=== PATIENT | male | born 1995 | race Caucasian/White ===

== ENCOUNTER 2019-03-08 00:57 | Outpatient (CLI) | payer OTHER, SELFPAY ==
--- NOTE | 2019-03-08 14:09 | DI.RAD_ITS ---
EXAM: XR CHEST 2V PA LATERAL CLINICAL HISTORY: LYMPHADENOPATHY, R59.1-GENERALIZED ENLARGED LYMPH NODES. TECHNIQUE: 2D digital imaging was performed. COMPARISON: ABD FLAT UPRIGHT PA CHEST from 11/25/2011 FINDINGS: LUNGS: Clear. No pleural abnormality seen. HEART: Normal. MEDIASTINUM: Normal. OTHER FINDINGS:Normal. IMPRESSION: No acute pulmonary findings.
[2019-03-08 14:53] LABS: HCT 48.1 % (40.0-50.0); HGB 16.7 g/dL (13.5-17.5); Mean Corp. HGB Concentration 34.7 g/dL (32.0-36.0); Mean Corpuscular Hemoglobin 30.9 pg (27.0-33.0); Mean Corpuscular Volume 89.1 fL (80-95); Mean Platelet Volume 9.9 fL (8.0-11.0); Platelet Count 185 x1000/uL (130-400); White Blood Cell Count 6.74 k/cumm (4.4-10.8)
[2019-03-08 15:36] LABS: ESR 4 mm/hr (0-15)
[2019-03-08 16:06] LABS: TSH (W/Ref FT4) 0.99 uIU/mL (0.36-3.74); Vitamin B12 325 pg/mL (193-986)
[2019-03-09 11:35] LABS: Lyme Ab w Rflx to Lyme Confirm Negative (Negative)
[2019-03-09 14:44] LABS: ANA Interpretation Negative (Negative)
[2019-03-09 14:47] LABS: HIV-1/2 Ag & Ab Screen Negative (Negative)
== END 2019-03-08 01:17 ==
PROVIDERS: PCP Nurse Practitioner; Visit Provider Nurse Practitioner
DX: R59.1 Generalized enlarged lymph nodes (principal); R53.83 Other fatigue; I10 Essential (primary) hypertension; Z11.4 Encounter for screening for human immunodeficiency virus [HIV]
CPT/HCPCS: 36415; 85027; 85652; 87389; 71046; 82607; 84443; 86038; 86618

== ENCOUNTER 2019-05-06 14:23 | Outpatient (CLI) | payer OTHER, SELFPAY ==
--- NOTE | 2019-05-06 12:00 | DI.RAD_ITS ---
EXAM: XR MANDIBLE COMPLETE INDICATION: pain s/p fall landing on left mandible R52, W19.XXXA, R68.84. COMPARISON: No exams were available for comparison TECHNIQUE: 2D digital imaging was performed. FINDINGS: There is no evidence of fracture. There is normal mobility of the temporomandibular joints. There is no evidence temporomandibular joint dislocation. There is a mucous retention cyst at the floor of the right maxillary sinus. There is no bony destruction. The remaining sinuses appear clear. The cervical spine is unremarkable as visualized. IMPRESSION: Negative mandible and temporomandibular joints. DATA REPOSITORY: RADIATION DOSE DELIVERED:
== END 2019-05-06 14:43 ==
PROVIDERS: PCP Nurse Practitioner; Visit Provider Nurse Practitioner
DX: R68.84 Jaw pain (principal); W19.XXXA Unspecified fall, initial encounter; J34.1 Cyst and mucocele of nose and nasal sinus
CPT/HCPCS: 70110; 70328

== ENCOUNTER 2019-09-03 16:31 | Outpatient (REF) | payer OTHER, SELFPAY ==
[2019-09-06 10:00] LABS: HIV-1/2 Ag & Ab Screen Negative (Negative)
[2019-09-06 11:29] LABS: Syphilis Serology (RPR) Negative (Negative)
[2019-09-06 16:43] LABS: Chlamydia Result Positive (Negative); GC Result Negative (Negative)
== END 2019-09-03 16:51 ==
LOC: LBO 16:31
PROVIDERS: PCP Nurse Practitioner; Visit Provider Family Medicine
DX: Z11.3 Encounter for screening for infections with a predominantly sexual mode of transmission (principal); Z11.4 Encounter for screening for human immunodeficiency virus [HIV]
CPT/HCPCS: 87389; 87491; 87591; 86592

== ENCOUNTER 2019-11-02 07:57 | Outpatient (CLI) | payer OTHER, SELFPAY ==
[2019-11-04 22:13] LABS: SARS-CoV-2 Specimen Source Nasopharynx
[2019-11-04 23:25] LABS: SARS-CoV-2 RNA Detected (Undetected)
== END 2019-11-02 08:17 ==
PROVIDERS: PCP Nurse Practitioner; Visit Provider Nurse Practitioner Adult Health
DX: R05 Cough (principal); R09.81 Nasal congestion; R53.83 Other fatigue
CPT/HCPCS: U0003

== ENCOUNTER 2019-11-12 03:49 | Outpatient (CLI) | payer OTHER, SELFPAY ==
[2019-11-14 23:05] LABS: Patient Race White; SARS-CoV-2 Specimen Source Nasopharynx
[2019-11-15 07:02] LABS: SARS-CoV-2 RNA Indeterminate (Undetected)
== END 2019-11-12 04:09 ==
PROVIDERS: PCP Nurse Practitioner; Visit Provider Family Medicine
DX: Z11.59 Encounter for screening for other viral diseases (principal)
CPT/HCPCS: U0003

== ENCOUNTER 2019-11-19 07:56 | Outpatient (CLI) | payer OTHER, SELFPAY ==
[2019-11-22 16:14] LABS: COVID-19 RT-PCR UVMMC Result Positive (Negative)
== END 2019-11-19 08:16 ==
PROVIDERS: PCP Nurse Practitioner; Visit Provider Family Medicine
DX: U07.1 COVID-19 (principal)
CPT/HCPCS: U0003

== ENCOUNTER 2019-12-21 14:00 | Outpatient (REF) | payer OTHER, SELFPAY ==
[2019-12-23 15:20] LABS: Chlamydia Result Negative (Negative); GC Result Negative (Negative)
== END 2019-12-21 14:20 ==
LOC: LBN 14:00
PROVIDERS: PCP Nurse Practitioner; Visit Provider Family Medicine
DX: Z20.2 Contact with and (suspected) exposure to infections with a predominantly sexual mode of transmission (principal); Z11.3 Encounter for screening for infections with a predominantly sexual mode of transmission
CPT/HCPCS: 87491; 87591

== ENCOUNTER 2020-01-17 12:30 | Outpatient (REF) | payer OTHER, SELFPAY | END 2020-01-17 12:50 | LOC: LBN 12:30 | PROVIDERS: PCP Nurse Practitioner; Visit Provider Nurse Practitioner | DX: H92.03 Otalgia, bilateral (principal) | CPT/HCPCS: 87070 ==

== ENCOUNTER 2020-02-04 11:49 | Inpatient (IN) | payer OTHER, SELFPAY ==
[2020-02-04] VITALS (26 sets, daily range): BP systolic 110–153; BP diastolic 68–94; PULSE 41–72; RESP 7–20; TEMP 36.1–36.6; O2SAT 94–100
--- NOTE | 2020-02-04 11:58 | ED.GENADUL_ITS ---
Discharge Plan Discharge Details Chief Complaint: Nk/Back Pain Primary Care Provider: Nicci Lo ED Provider: Andressa Aden Home Meds and New Rx's Prescriptions: No Action hydroxyzine HCl 50 mg tablet 50 mg PO QID PRN (Reason: anxiety) Qty: 120 RF: 2 tizanidine [Zanaflex] 4 mg tablet 16 mg PO HS MDD 4 tabs PRN (Reason: muscle spasticity) Qty: 360 RF: 1 sildenafil 100 mg tablet See Rx Instructions PO DAILY PRN (Reason: sexual activity) Qty: 30 RF: 1 fluticasone propionate [Flonase Allergy Relief] 50 mcg/actuation spray,suspension 2 spray LEW DAILY PRN (Reason: nasal congestion) Qty: 9.9 RF: 0 lorazepam 0.5 mg tablet 0.5 mg PO BID PRN (Reason: anxiety) Qty: 56 RF: 0 zolpidem 10 mg tablet 10 mg PO QHS PRN (Reason: sleep) Qty: 90 RF: 0 clonidine HCl 0.2 mg tablet 0.2 mg PO TID PRN (Reason: anxiety) Qty: 90 RF: 3 bupropion HCl [Wellbutrin XL] 150 mg tablet extended release 24 hr 150 mg PO QAM Qty: 30 RF: 3 Medical Marijuana RF: 0 fluocinonide 0.05 % cream 1 applic TP BID PRN (Reason: psoriasis) Qty: 60 RF: 3 diflorasone 0.05 % cream 1 applic TP BID Qty: 60 RF: 3 betamethasone dipropionate 0.05 % lotion 1 applic TP BID RF: 0 calcipotriene 0.005 % ointment 1 applic TP BID RF: 0 buspirone 15 mg tablet 30 mg PO BID Qty: 120 RF: 6 ibuprofen 800 mg tablet 800 mg PO TID PRN (Reason: pain) Qty: 90 RF: 3 betamethasone dipropionate 0.05 % ointment 1 applic TP BID RF: 0 risankizumab-rzaa 75 mg/0.83 mL syringe See Rx Instructions SC PER PKG DIR RF: 0 tacrolimus 0.1 % ointment 1 applic TP BID PRNRF: 0 acetaminophen 325 mg Tablet 650 mg PO PRN PRNRF: 0 Medical Decision Making 24-year-old male presents to the ER with chief complaint of back pain and v omiting. He reports pain began approximately 2 days ago followed by vomiting today. He is diaphoretic upon arrival and actively dry heaving. He reports midepigastric abdominal pain and midthoracic back pain. He has a history of anxiety, low back pain, chronic pain syndrome, sent here by PCP for further work-up and evaluation. 1326: Spoke with Dr. Valdez with with radiology he gives a verbal preliminary CT results of acute pancreatitis. No kidney stone. Lipase added on the labs urine at this time is still pending. EXAM: CT RENAL COLIC WO CLINICAL HISTORY: Back pain, vomiting, R/O kidney stone. TECHNIQUE: Imaging Protocol: Axial computed tomography images with coronal and sagittal reformatted images were created and reviewed. COMPARISON: No prior exams available for comparison FINDINGS: ABDOMEN: Visualize lung Bases: No pleural effusions. No obvious nodules Liver: Partially included on this renal calculus protocol. There is an element of steatosis in the visualized liver. There are no obvious masses. No obvious dilatation of intrahepatic ducts. Gallbladder and biliary tract: No obvious acute gallbladder pathology. CBD is not dilated. Pancreas: There is abundant peripancreatic streaking consistent with pancreatitis. No obvious pancreatic mass. No pancreatic parenchymal calcifications. Spleen: Upper normal Kidneys: Normal size, contour and axis.No radiodense stones or obstructive uropathy. No masses seen. Adrenal glands: No mass is seen. Lymph nodes: Within normal limits. Abdominal Aorta: Abdominal portion non-dilated. PELVIS: Bladder:Unremarkable Bowel: No obstruction or bowel wall thickening. No evidence for acute appendicitis. Peritoneal cavity: There is some free fluid in the most dependent aspect of the pelvis, this related to the pancreatitis. Reproductive organs: Within normal limits. Bones: Fusion surgery in the lower lumbar spine. No fractures nor lytic osseous lesions. Sacroiliac joints appear unremarkable. IMPRESSION: Findings are consistent with acute pancreatitis. There is abundant peripancreatic streaking. There is no formed pseudocyst at this time. No evidence of renal calculi nor obstruction of the urinary tracts. Result called by myself to the ER provider at [facility]. EXAM: US ABDOMEN LIMITED INDICATION: Pancreatitis, Eval Gallblader and RUQ COMPARISON: No exams were available for comparison TECHNIQUE: Ultrasound abdomen performed using standard protocol FINDINGS: Abdominal ultrasound was performed according to the usual protocol. The liver is normal in size and shape. No focal hepatic lesion seen. There is no evidence of cholelithiasis or biliary dilatation. No gallbladder wall thickening or pericholecystic fluid collection. The pancreatic head is thickened and edematous, abdominal CT obtained earlier today showed findings highly suggestive of acute pancreatitis with marked peripancreatic edema. There is mild free fluid noted in Carroll's pouch and adjacent to the pancreatic head. Spleen is unremarkable in appearance with no focal lesion. Kidneys are normal in size and shape. No renal mass, hydronephrosis, or nephrolithiasis. Abdominal aorta and IVC are of normal diameter. IMPRESSION: No evidence of cholelithiasis or biliary tract obstruction. Findings consistent with pancreatitis, as noted on today's CT. 1456: Spoke with Dr. Dewitt hospitalist who agrees to accept patient for admission. Discussed patient case in details with him. Discussed plan with patient who verbalizes understanding and agrees. HPI General Mode of arrival: ambulatory . Date/Time Provider Initiated Documentation: 02/04/20 11:53 . Limitations to Documentation: no limitations . Information obtained by: patient . HPI Narrative: 24-year-old male presents to the ER with chief complaint of back pain and vomiting. He reports pain began approximately 2 days ago followed by vomiting today. He is diaphoretic upon arrival and actively dry heaving. He reports midepigastric abdominal pain and midthoracic back pain. He has a history of anxiety, low back pain, chronic pain syndrome, sent here by PCP for further work-up and evaluation. Related Data Home Medications Medication Instructions Recorded Confirmed fluocinonide 0.05 % topical cream 1 applic TP BID PRN #60 gm 12/18/17 02/04/20 diflorasone 0.05 % topical cream 1 applic TP BID #60 gm 01/05/18 02/04/20 betamethasone dipropionate 0.05 % 1 applic TP BID 10/26/18 02/04/20 lotion calcipotriene 0.005 % topical 1 applic TP BID 10/26/18 02/04/20 ointment hydroxyzine HCl 50 mg tablet 50 mg PO QID PRN #120 tab 05/06/19 02/04/20 clonidine HCl 0.2 mg tablet 0.2 mg PO TID PRN #90 tab 05/18/19 02/04/20 buspirone 15 mg tablet 30 mg PO BID #120 tab 05/19/19 02/04/20 ibuprofen 800 mg tablet 800 mg PO TID PRN #90 tab 06/29/19 02/04/20 bupropion HCl 150 mg 24 hr tablet, 150 mg PO QAM #30 tab 08/12/19 02/04/20 extended release betamethasone dipropionate 0.05 % 1 applic TP BID 10/27/19 02/04/20 topical ointment risankizumab-rzaa 75 mg/0.83 mL See Rx Instructions SC PER PKG DIR 10/27/19 02/04/20 subcutaneous syringe tacrolimus 0.1 % topical ointment 1 applic TP BID PRN 10/27/19 02/04/20 fluticasone propionate 50 2 spray LEW DAILY PRN #9.9 ml 11/01/19 02/04/20 mcg/actuation nasal spray,suspension sildenafil 100 mg tablet See Rx Instructions PO DAILY PRN 11/01/19 02/04/20 #30 tab tizanidine 4 mg tablet 16 mg PO HS PRN #360 tab MDD 4 tabs 11/01/19 02/04/20 lorazepam 0.5 mg tablet 0.5 mg PO BID PRN #56 tab 01/17/20 02/04/20 zolpidem 10 mg tablet 10 mg PO QHS PRN #90 tab 01/17/20 02/04/20 acetaminophen 650 mg PO PRN PRN 02/04/20 02/04/20 Previous Rx's Medication Instructions Recorded fluocinonide 0.05 % topical cream 1 applic TP BID PRN #60 gm 12/18/17 diflorasone 0.05 % topical cream 1 applic TP BID #60 gm 01/05/18 hydroxyzine HCl 50 mg tablet 50 mg PO QID PRN #120 tab 05/06/19 clonidine HCl 0.2 mg tablet 0.2 mg PO TID PRN #90 tab 05/18/19 buspirone 15 mg tablet 30 mg PO BID #120 tab 05/19/19 ibuprofen 800 mg tablet 800 mg PO TID PRN #90 tab 06/29/19 bupropion HCl 150 mg 24 hr tablet, 150 mg PO QAM #30 tab 08/12/19 extended release fluticasone propionate 50 2 spray LEW DAILY PRN #9.9 ml 11/01/19 mcg/actuation nasal spray,suspension sildenafil 100 mg tablet See Rx Instructions PO DAILY PRN 11/01/19 #30 tab tizanidine 4 mg tablet 16 mg PO HS PRN #360 tab MDD 4 tabs 11/01/19 lorazepam 0.5 mg tablet 0.5 mg PO BID PRN #56 tab 01/17/20 zolpidem 10 mg tablet 10 mg PO QHS PRN #90 tab 01/17/20 Allergies Allergy/AdvReac Type Severity Reaction Status Date / Time No Known Allergies Allergy Verified 02/04/20 12:01 General Stated Complaint: Nk/Back Pain ANAMIKA: 3 Review of Systems Narrative: Constitutional: Negative for weight loss, alert and oriented, well groomed, normal body habitus, appears uncomfortable. Positive diaphoresis. HEENT: Denies trauma, headaches, blurry vision, nasal discharge, sore throat, trouble swallowing. Chest: Denies chest pain, palpitations, irregular rhythm, hypertension. Respiratory: Denies Shortness of breath, cough, hemoptysis. GI: Denies diarrhea, positive abdominal pain, nausea vomiting and constipation. : Denies dysuria, hematuria, flank pain, rectal bleeding. Neuro: Denies dizziness, blurry vision, weakness, syncope, headache or facial numbness. Hematologic: Denies easy bruising, intolerance to heat or cold, hair loss. [facility] Medical History Depressive disorder (12/09/12) Surgical History Spinal Fusion (02/25/13) L4,5 Social History Smoking/Tobacco Use Status: Never Smoking risk assessment performed?: Yes Alcohol Intake: current Alcohol Intake frequency: a few times a week Drug use: Daily Substance use type: marijuana What type of physical activity do you participate in: walking, aerobic, swimming and weight lifting Frequency: 3-4 times per week Do you feel safe at home: Yes Do you feel safe in your relationship?: Yes Exam Narrative Exam Narrative: Constitutional: Alert and oriented x3. Appears stated age. Normal body habitus. Diaphoretic, pale. Head: Normocephalic, no trauma. Eyes: Pupils PERRLA, Red reflex noted, EOM's intact. Eyelids symmetrical without lesions, discharge, or swelling. ENT: Bilateral TM's WNL, External ear normal to inspection, no mastoid TTP, swelling, or erythema, Nasal turbinates WNL, no nasal discharge. Normal dentition, Posterior pharynx WNL, no exudate. Chest: RRR, Normal S1, S2, distal pulses intact. Resp: Lungs clear to auscultation bilaterally, no wheezes, rales, or rhonchi. Abdomen: TTP mid epigastric, positive guarding. Musculoskeletal: Normal gait, 5/5 strength to all four extremities. Skin: No suspicious rashes or lesions. Capillary refill less than 2 sec. Neurologic: Cranial nerves II-XII intact. Alert and oriented x 3. DTR's intact. Hematologic/Lymphatic: No ecchymosis, no lymphadenopathy. Course Vital Signs Vital signs: Vital Signs Temperature 36.3 C L 02/04/20 11:53 Pulse 65 02/04/20 11:53 Respiratory Rate 20 02/04/20 11:53 Blood Pressure 145/94 H 02/04/20 11:53 Pulse Oximetry 94 02/04/20 11:53 Temperature 36.3 C L 02/04/20 11:53 Pulse 65 02/04/20 11:53 Respiratory Rate 20 02/04/20 11:53 Blood Pressure 145/94 H 02/04/20 11:53 Blood Pressure Position Sitting 02/04/20 11:53 Pulse Oximetry 94 02/04/20 11:53 Oxygen Delivery Method Room Air 02/04/20 11:53 Oxygen Flow Rate 0 02/04/20 11:53 Pain Level 8 02/04/20 11:53
[2020-02-04] MEDS: Ondansetron 4 MG/2 ML VIAL IVP (12:15)
[2020-02-04] MEDS: Normal Saline 1,000 ML 1000 ML IV (12:15)
[2020-02-04 12:19] LABS: Abs Immature Grans 0.04 10^3/uL (0.0-0.06); Absolute Basophil Count 0.02 10^3/uL (0.0-0.2); Absolute Eosinophil Count 0.38 10^3/uL (0.0-0.7); Absolute Lymphocyte Count 1.46 10^3/uL (1.2-3.4); Absolute Monocyte Count 0.87 10^3/uL (0.1-0.8); Basophils % 0.2; Eosinophils % 3.4; HCT 49.2 % (40.0-50.0); HGB 17.3 g/dL (13.5-17.5); Immature Grans % 0.4; MCH 30.9 pg (27.0-33.0); MCHC 35.2 % (32.0-36.0); MCV 87.9 fL (80-95); MPV 9.6 fL (8.0-11.0); Monocytes % 7.7; Neutrophils % 75.3; Nucleated RBC 0 %; Platelet Count 177 10^3/uL (130-400); RDW 13.1 % (11.8-14.1); RDW-SD 42.1 fL; WBC 11.25 10^3/uL (4.4-10.8)
[2020-02-04 12:34] LABS: ALT 22 U/L (16-63); AST 17 U/L (15-37); Albumin 4.8 g/dL (3.4-5.0); Alkaline Phosphatase 54 U/L (46-116); BUN 14 mg/dL (7-18); Bilirubin, Total 1.4 mg/dL (0.2-1.0); CREATININE 0.98 mg/dL (0.70-1.30); Calcium 9.7 mg/dL (8.5-10.1); Chloride 104 mmol/L (98-107); Glucose 125 mg/dL (74-106); Potassium 3.2 mmol/L (3.5-5.1); Sodium 142 mmol/L (136-145); Total Protein 8.2 g/dL (6.4-8.2)
[2020-02-04 12:39] LABS: Absolute Neutrophil Count 8.47 10^3/uL (1.2-6.7)
--- NOTE | 2020-02-04 13:07 | DI.CT_ITS ---
EXAM: CT RENAL COLIC WO CLINICAL HISTORY: Back pain, vomiting, R/O kidney stone. TECHNIQUE: Imaging Protocol: Axial computed tomography images with coronal and sagittal reformatted images were created and reviewed. COMPARISON: No prior exams available for comparison FINDINGS: ABDOMEN: Visualize lung Bases: No pleural effusions. No obvious nodules Liver: Partially included on this renal calculus protocol. There is an element of steatosis in the v isualized liver. There are no obvious masses. No obvious dilatation of intrahepatic ducts. Gallbladder and biliary tract: No obvious acute gallbladder pathology. CBD is not dilated. Pancreas: There is abundant peripancreatic streaking consistent with pancreatitis. No obvious pancre atic mass. No pancreatic parenchymal calcifications. Spleen: Upper normal Kidneys: Normal size, contour and axis.No radiodense stones or obstructive uropathy. No masses seen. Adrenal glands: No mass is seen. Lymph nodes: Within normal limits. Abdominal Aorta: Abdominal portion non-dilated. PELVIS: Bladder:Unremarkable Bowel: No obstruction or bowel wall thickening. No evidence for acute appendicitis. Peritoneal cavity: There is some free fluid in the most dependent aspect of the pelvis, this related to the pancreatitis. Reproductive organs: Within normal limits. Bones: Fusion surgery in the lower lumbar spine. No fractures nor lytic osseous lesions. Sacroiliac joints appear unremarkable. IMPRESSION: Findings are consistent with acute pancreatitis. There is abundant peripancreatic streaking. There is no formed pseudocyst at this time. No evidence of renal calculi nor obstruction of the urinary tracts. Result called by myself to the ER provider at [facility]. RADIATION DOSE DELIVERED: 797.93mGy.cm Total DLP DATA REPOSITORY: All CT scans at this facility are submitted to the National Radiology Data Registry (NRDR) Dose Index Registry (DIR) with the [employer] ([employer]). RADIATION OPTIMIZATION: All CT scans at this facility use at least one of these dose optimization te chniques: automated exposure control; mA and/or kV adjustment per patient size (includes targeted exa ms where dose is matched to clinical indication); or iterative reconstruction.
--- NOTE | 2020-02-04 13:30 | DI.US_ITS ---
EXAM: US ABDOMEN LIMITED INDICATION: Pancreatitis, Eval Gallblader and RUQ COMPARISON: No exams were available for comparison TECHNIQUE: Ultrasound abdomen performed using standard protocol FINDINGS: Abdominal ultrasound was performed according to the usual protocol. The liver is normal in size and shape. No focal hepatic lesion seen. There is no evidence of cholelithiasis or biliary dilatation. No gallbladder wall thickening or peric holecystic fluid collection. The pancreatic head is thickened and edematous, abdominal CT obtained earlier today showed findings h ighly suggestive of acute pancreatitis with marked peripancreatic edema. There is mild free fluid no sherley in Carroll's pouch and adjacent to the pancreatic head. Spleen is unremarkable in appearance with no focal lesion. Kidneys are normal in size and shape. No renal mass, hydronephrosis, or nephrolithiasis. Abdominal aorta and IVC are of normal diameter. IMPRESSION: No evidence of cholelithiasis or biliary tract obstruction. Findings consistent with pancreatitis, a s noted on today's CT.
[2020-02-04] MEDS: HYDROmorphone 2 MG/ML VIAL 0.5 MG IVP ×2 (13:44→15:12)
[2020-02-04] MEDS: Normal Saline 250 ML IV (13:48)
[2020-02-04 14:10] LABS: Lipase 7422 U/L (73-393)
[2020-02-04 15:03] LABS: Triglyceride 51 mg/dL (<150)
[2020-02-04 15:29] LABS: Bilirubin Small (Negative); Blood Negative (Negative); Clarity Clear (Clear); Glucose Negative (Negative); Ketones 40 mg/dL (Negative); Leukocyte Esterase Negative (Negative); Nitrite Negative (Negative); Specific Gravity >= 1.030 (1.005-1.025); Urobilinogen 0.2 EU/dL (Up TO 0.2)
[2020-02-04 15:39] LABS: Bacteria Few HPF (Negative); C & S Indicated? Yes; Casts Negative LPF (Negative); Crystals Negative HPF (Negative); Epithelial Cells Rare HPF (Negative); Mucus Moderate (Negative); RBC 0-2 HPF (0-2); WBC 0-2 HPF (0-5)
[2020-02-04 15:55] LABS: *AMPHETAMINES SCREEN URINE Negative (Negative); *BARBITURATES SCREEN URINE Negative (Negative); *BENZODIAZEPINES SCREEN URINE Negative (Negative); Cannabinoids THC POSITIVE (Negative); Cocaine Screen,Urine Negative (Negative); METHADONE URINE SCREEN Negative (Negative); OPIATES URINE SCREEN POSITIVE (Negative)
[2020-02-04 15:59] LABS: Tricyclic Antidepressants Negative (Negative)
--- NOTE | 2020-02-04 16:56 | W.PM.HP.N ---
Date of service: 02/04/20 Time of Service: 16:56 Assessment and Plan Assessment and plan (1) Acute pancreatitis: Status: Acute Assessment and plan: Keep n.p.o. continue with IV fluid hydration, narcotic analgesics and antiemetics. Repeat labs in the morning. Patient can have ice chips and sips of water for tonight. Although the patient minimizes the amount of alcohol he drinks reporting only couple hard ciders 2 or 3 times a week. Nevertheless I suspect that his pancreatitis is secondary to his alcohol. He has never had a history of pancreatitis. I reviewed the side effects of Skyrizi and pancreatitis is not one of them. It is possible however that the pancreatitis may be a sequelae of his Covid infection although I am not aware of pancreatitis being one of the manifestations of COVID-19. Qualifiers: Pancreatitis type: idiopathic Acute pancreatitis complication: no infection or necrosis Qualified Code(s): K85.00 - Idiopathic acute pancreatitis without necrosis or infection (2) Insomnia: Status: Acute Assessment and plan: Continue tizanidine and Ambien as prescribed at home. Qualifiers: Insomnia type: due to other mental disorder Qualified Code(s): F51.05 - Insomnia due to other mental disorder; F99 - Mental disorder, not otherwise specified (3) Anxiety: Status: Acute Assessment and plan: Continue home medications. History of Present Illness History of Present Illness Chief Complaint: Back pain, abdominal pain and nausea and vomiting Narrative: 24-year-old male with a history of psoriasis currently well controlled Skyrizi. Patient became infected in October with SARS-CoV-2 after he had travel to [place]. Symptoms at that time include headache and myalgias and loss of sense of taste and smell. He says he still has a decreased sense of taste and smell although that is coming back. He gets some paresthesias in his legs since his COVID-19 infection. He presented the emergency department with acute onset of nausea and vomiting and epigastric and back pain. Started as back pain on Friday night and then progressed to epigastric pain and nausea and vomiting. He called his primary care provider today who referred him to the emergency department. Evaluation emergency department clued routine labs that demonstrated pancreatitis with elevated lipase of 7400 associated with hypokalemia 3.2. Bilirubin was elevated at 1.4 with normal alkaline phosphatase and normal transaminases. His CBC showed a leukocytosis of 11,000 but no anemia. Serum calcium was normal at 9.7. CT per renal colic profile without contrast demonstrate evidence of pancreatitis with peripancreatic streaking with no pseudocyst and no abscess. No renal calculi and no hydronephrosis was seen. Subsequent ultrasound of the abdomen demonstrated normal liver size and shape with no focal hepatic lesions and no cholelithiasis or biliary dilatation. No gallbladder wall thickening and no pericholecystic fluid collection. Pancreatic head was thickened and edematous which showed peripancreatic edema with mild free fluid noticed in Morison's pouch adjacent to the pancreatic head. Kidneys and spleen were unremarkable. Patient was treated with IV morphine and IV Dilaudid and Zofran and he was given IV fluid bolus. He is now admitted for treatment of acute pancreatitis. Review of Systems All systems reviewed & are unremarkable except as noted in HPI and below [facility] Medical History (Updated 02/04/20 @ 20:08 by Matthew Tena) Anxiety (02/19/13) COVID-19 Depressive disorder (12/09/12) RASHAAD (generalized anxiety disorder) 04/29/19 Inpatient [facility] for SI Guttate psoriasis 12/14/18- [facility] dermatology. Oren Pena MD 10/27/19 psoriasis including penile areas [facility] Dr Christy Merino MD Insomnia (06/25/13) Scoliosis Spina bifida Surgical History (Updated 02/04/20 @ 19:35 by Matthew Tena) H/O arthroscopic knee surgery History of lumbar fusion Spinal Fusion (02/25/13) L4,5 Social History Smoking/Tobacco Use Status: Never Smoking risk assessment performed?: Yes Alcohol Intake: current Alcohol Intake frequency: a few times a week Drug use: Daily Substance use type: marijuana What type of physical activity do you participate in: walking, aerobic, swimming and weight lifting Frequency: 3-4 times per week Do you feel safe at home: Yes Do you feel safe in your relationship?: Yes Meds Home Medications and Allergies Home Medications Medication Instructions Recorded Confirmed Type Medical Marijuana 05/17/16 09/28/18 Clinic clonidine HCl 0.2 mg tablet 0.2 mg PO TID PRN #90 tab 05/18/19 02/04/20 Rx buspirone 15 mg tablet 30 mg PO BID #120 tab 05/19/19 02/04/20 Rx ibuprofen 800 mg tablet 800 mg PO TID PRN #90 tab 06/29/19 02/04/20 Rx risankizumab-rzaa 75 mg/0.83 mL See Rx Instructions SC PER PKG DIR 10/27/19 02/04/20 History subcutaneous syringe fluticasone propionate 50 2 spray LEW DAILY PRN #9.9 ml 11/01/19 02/04/20 Rx mcg/actuation nasal spray,suspension sildenafil 100 mg tablet See Rx Instructions PO DAILY PRN 11/01/19 02/04/20 Rx #30 tab tizanidine 4 mg tablet 16 mg PO HS PRN #360 tab MDD 4 tabs 11/01/19 02/04/20 Rx lorazepam 0.5 mg tablet 0.5 mg PO BID PRN #56 tab 01/17/20 02/04/20 Rx zolpidem 10 mg tablet 10 mg PO QHS PRN #90 tab 01/17/20 02/04/20 Rx acetaminophen 650 mg PO PRN PRN 02/04/20 02/04/20 History bupropion HCl [Wellbutrin SR] 100 mg PO BID 02/04/20 02/04/20 History hydroxyzine HCl 50 mg PO TID PRN PRN 02/04/20 02/04/20 History Allergies Allergy/AdvReac Type Severity Reaction Status Date / Time No Known Allergies Allergy Verified 02/04/20 12:01 Exam Narrative Exam Narrative: Young male sitting up in bed alert and oriented person place time circumstance. Patient is wearing his mask. HEENT is unremarkable. Neck is supple nontender no adenopathy no JVD normal carotid pulses Lungs are clear to auscultation Heart is regular rate and rhythm without murmur rub or gallop Abdomen firm and tender with active bowel sounds. No appreciable masses however the patient due to voluntary guarding will allow me to do deep palpation of his abdomen. Extremities without peripheral cyanosis or edema. There is no psoriatic plaques over his elbows or knees or the back of his hands. Neuro exam grossly intact no focal deficits. Results Labs Result diagrams: 02/04/20 12:10 02/04/20 12:10 Labs: Laboratory Results - last 24 hr 11/27/20 11/27/20 11/27/20 12:10 12:10 12:10 WBC 11.25 H RBC 5.60 Hgb 17.3 Hct 49.2 MCV 87.9 MCH 30.9 MCHC 35.2 RDW 13.1 Plt Count 177 MPV 9.6 Immature Gran % 0.4 Neutrophils % 75.3 Lymphocytes % 13.0 Monocytes % 7.7 Eosinophils % 3.4 Basophils % 0.2 Nucleated RBC % 0 Absolute Neutrophils 8.47 H Absolute Lymphocytes 1.46 Absolute Monocytes 0.87 H Absolute Eosinophils 0.38 Absolute Basophils 0.02 Sodium 142 Potassium 3.2 L Chloride 104 Carbon Dioxide 27.0 Anion Gap 11.0 BUN 14 Creatinine 0.98 Estimated GFR/1.73 m2 >= 60.00 Glucose 125 H Calcium 9.7 Total Bilirubin 1.4 H AST 17 ALT 22 Alkaline Phosphatase 54 Total Protein 8.2 Albumin 4.8 Triglycerides Lipase 7422 H Urine Color Urine Clarity Urine pH Ur Specific [place] Urine Protein Urine Ketones Urine Blood Urine Nitrite Urine Bilirubin Urine Urobilinogen Ur Leukocyte Esterase Urine RBC Urine WBC Ur Epithelial Cells Urine Crystals Urine Bacteria Urine Casts Urine Mucus Ur Culture Indicated? Urine Glucose Urine Opiates Screen Urine Methadone Screen Ur Barbiturates Screen Ur Tricyclics Screen Ur Amphetamines Screen U Benzodiazepines Scrn Urine Cocaine Screen Ur THC Screen 02/04/20 02/04/20 02/04/20 12:10 15:21 15:21 WBC RBC Hgb Hct MCV MCH MCHC RDW Plt Count MPV Immature Gran % Neutrophils % Lymphocytes % Monocytes % Eosinophils % Basophils % Nucleated RBC % Absolute Neutrophils Absolute Lymphocytes Absolute Monocytes Absolute Eosinophils Absolute Basophils Sodium Potassium Chloride Carbon Dioxide Anion Gap BUN Creatinine Estimated GFR/1.73 m2 Glucose Calcium Total Bilirubin AST ALT Alkaline Phosphatase Total Protein Albumin Triglycerides 51 Lipase Urine Color Yellow Urine Clarity Clear Urine pH 6.0 Ur Specific [place] >= 1.030 H Urine Protein 30 H Urine Ketones 40 H Urine Blood Negative Urine Nitrite Negative Urine Bilirubin Small H Urine Urobilinogen 0.2 Ur Leukocyte Esterase Negative Urine RBC 0-2 Urine WBC 0-2 Ur Epithelial Cells Rare Urine Crystals Negative Urine Bacteria Few Urine Casts Negative Urine Mucus Moderate Ur Culture Indicated? Yes Urine Glucose Negative Urine Opiates Screen Positive A Urine Methadone Screen Negative Ur Barbiturates Screen Negative Ur Tricyclics Screen Negative Ur Amphetamines Screen Negative U Benzodiazepines Scrn Negative Urine Cocaine Screen Negative Ur THC Screen Positive A Last Vital Signs Temp 36.2 C L 02/04/20 16:05 Pulse 48 L 02/04/20 16:05 Resp 18 02/04/20 16:05 BP 130/85 02/04/20 16:05 Pulse Ox 98 02/04/20 16:05 COVID-19 Screening Have you, or household traveled for leisure in last 14 days?: TRAVEL NO Had IN PERSON contact w/suspected or confirmed C-19 person: No
[2020-02-04] MEDS: Normal Saline Flush 10 ML SYR IVP (17:40)
[2020-02-04] MEDS: HYDROmorphone 2 MG/ML VIAL IVP ×3 (17:40→22:59)
[2020-02-04] MEDS: LORazepam 0.5 MG TAB PO (17:41)
[2020-02-04] MEDS: POTASSIUM CHLORIDE/0.9% NACL 1,000 ML 200 MEQ IV ×2 (17:41→23:01)
[2020-02-04] MEDS: Acetaminophen 325 MG TAB PO (17:53)
[2020-02-04] MEDS: Pantoprazole 40 MG VIAL IVP (17:56)
[2020-02-04] MEDS: hydrOXYzine HCL 50 MG TAB PO (20:48)
[2020-02-04] MEDS: Zolpidem 6.25 MG TABCR PO (23:16)
[2020-02-05] MEDS: POTASSIUM CHLORIDE/0.9% NACL 1,000 ML 200 MEQ IV ×2 (03:28→09:23)
[2020-02-05] MEDS: HYDROmorphone 2 MG/ML VIAL IVP ×7 (03:30→23:08)
[2020-02-05 06:00] VITALS: BP 137/68; PULSE 80; RESP 17; TEMP 36.9; O2SAT 100
[2020-02-05 06:40] LABS: Abs Immature Grans 0.02 10^3/uL (0.0-0.06); Absolute Basophil Count 0.01 10^3/uL (0.0-0.2); Absolute Eosinophil Count 0.08 10^3/uL (0.0-0.7); Absolute Lymphocyte Count 1.01 10^3/uL (1.2-3.4); Absolute Monocyte Count 0.94 10^3/uL (0.1-0.8); Absolute Neutrophil Count 7.47 10^3/uL (1.2-6.7); Basophils % 0.1; Eosinophils % 0.8; HCT 40.2 % (40.0-50.0); HGB 13.9 g/dL (13.5-17.5); Immature Grans % 0.2; Lymphocytes % 10.6; MCHC 34.6 % (32.0-36.0); MCV 89.7 fL (80-95); Monocytes % 9.9; Neutrophils % 78.4; Nucleated RBC 0 %; Platelet Count 141 10^3/uL (130-400); RBC 4.48 10^6/uL (4.36-5.78); RDW 13.1 % (11.8-14.1); RDW-SD 42.6 fL; WBC 9.53 10^3/uL (4.4-10.8)
[2020-02-05 06:56] LABS: Magnesium 1.6 mg/dL (1.8-2.4)
[2020-02-05 06:59] LABS: ALT 15 U/L (16-63); AST 14 U/L (15-37); Albumin 3.4 g/dL (3.4-5.0); Alkaline Phosphatase 37 U/L (46-116); Anion Gap 7.9 mmol/L (3-11); BUN 8 mg/dL (7-18); Bilirubin, Total 0.9 mg/dL (0.2-1.0); CO2 26.1 mmol/L (21.0-32.0); CREATININE 0.81 mg/dL (0.70-1.30); Calcium 8.5 mg/dL (8.5-10.1); Chloride 105 mmol/L (98-107); Glucose 77 mg/dL (74-106); Potassium 3.3 mmol/L (3.5-5.1); Sodium 139 mmol/L (136-145); Total Protein 6.2 g/dL (6.4-8.2)
[2020-02-05 07:11] LABS: Lipase 4112 U/L (73-393)
[2020-02-05 07:20] VITALS: BP 137/71; PULSE 86; RESP 18; TEMP 37.8; O2SAT 100
[2020-02-05] MEDS: Docusate Sodium 100 MG CAP PO (08:15)
[2020-02-05] MEDS: Normal Saline 50 ML 200 ML ×2 (08:16→10:36)
[2020-02-05 08:26] LABS: COVID-19 RT-PCR UVMMC Result Negative (Negative)
[2020-02-05] MEDS: LORazepam 0.5 MG TAB PO ×2 (09:27→17:48)
[2020-02-05 11:28] VITALS: BP 135/80; PULSE 74; RESP 18; TEMP 37.5; O2SAT 98
[2020-02-05] MEDS: Ketorolac 30 MG/ML VIAL IVP (11:56)
[2020-02-05] MEDS: Normal Saline Flush 10 ML SYR IVP ×2 (11:56→17:48)
[2020-02-05] MEDS: DEXTROSE 5%-0.9% SALINE 1,000 ML 100 ML IV ×2 (12:03→23:07)
[2020-02-05] MEDS: HYDROmorphone 2 MG TAB PO (13:06)
--- NOTE | 2020-02-05 13:27 | PHA.REVIEW ---
Pharmacy Admission Review - Admission Clinical Review (Last Updated 02/04/20 @ 19:35 by Matthew Tena) Acute pancreatitis (Acute) Insomnia (Acute 06/25/13) Anxiety (Acute 02/19/13) No Known Allergies Allergy (Verified 02/04/20 12:01) Height 6 ft 3 in Weight 80.5 kg Pancreatitis - Comments Comments/Follow Ups: Abdominal Pain 08/17, frequently asking for pain meds per shift report, may have some degree of tolerance. Tox screen was positive for opiates, although none listed as a home medication. Diet is NPO at this time, watch for restart of some of his home meds. Follow Lipase trend. Urine culture pending - Renal Dosing Renal Dosing: BUN 8 mg/dL (7-18) D 02/05/20 06:10 Creatinine 0.81 mg/dL (0.70-1.30) 02/05/20 06:10 Medications needing adjustments: Reviewed (CrCl~160ml/min-no med adjustments) - Anticoagulation Anticoagulation: Hgb 13.9 g/dL (13.5-17.5) D 02/05/20 06:10 Hct 40.2 % (40.0-50.0) 02/05/20 06:10 Plt Count 141 10^3/uL (130-400) 02/05/20 06:10 Creatinine 0.81 mg/dL (0.70-1.30) 02/05/20 06:10 DVT Prohphylaxis: Reviewed Medications: Enoxaparin - Opiate Usage Evaluate Pain Scale/Pains Meds: Reviewed (Dilaudid IV or oral, Morphine dc'd) Scheduled Bowel Reg ordered if on Opiates?: No (Docusate/Miralax prn) - Relevant Labs Sodium 139 mmol/L (136-145) 02/05/20 06:10 Potassium 3.3 mmol/L (3.5-5.1) L 02/05/20 06:10 Chloride 105 mmol/L (98-107) 02/05/20 06:10 Magnesium 1.6 mg/dL (1.8-2.4) L 02/05/20 06:10 Electrolytes, C-Reactive P, ESR: Reviewed (KCL added to IVF's, Mag not replaced at this time, Lipase is elevated but significantly down to 4112) - DM Control DM Control: Glucose 77 mg/dL (74-106) 02/05/20 06:10 - BP Control BP Control: Blood Pressure 135/80 Blood Pressure 137/71 Blood Pressure 137/68 - IV to PO Switch IV Medications: Reviewed (Protonix, Phenergan, Hydromorphone, Toradol) - Home Meds Home Med List reviewed: Reviewed (Bupropion (not taking recently), Escitalopram, Buspar,Fluticasone NS not ordered. Also takes injectable Skyrizi for psoriasis. Was Covid positive a few months ago)
[2020-02-05 15:40] VITALS: BP 122/72; PULSE 69; RESP 18; TEMP 37.1; O2SAT 97
--- NOTE | 2020-02-05 16:18 | PGE_ITS ---
Date of Service Date of service: 02/05/20 Time of Service: 16:20 Assessment and Plan Assessment and plan (1) Acute pancreatitis: Status: Acute Assessment and plan: Idiopathic. Did have previous COVID-19 infection, but unaware of sequela of pancreatitis being described. Cont NPO with ice chips and sips of water as needed. Adjusting IV Dilaudid. Gave an oral dose but caused excessive nausea. Will try compazine rather than phenergan for nausea. Toradol IV was helpful to a modest extent; cont 30mg IV Q6H prn. Monitor creatinine. Qualifiers: Pancreatitis type: idiopathic Acute pancreatitis complication: no infection or necrosis Qualified Code(s): K85.00 - Idiopathic acute pancreatitis without necrosis or infection (2) RASHAAD (generalized anxiety disorder): Status: Acute Assessment and plan: Continues on home meds: prn Ativan (3) Guttate psoriasis: Status: Acute Assessment and plan: On Skyrizi. Pancreatitis not listed in the P.I. as a side effect. Subjective Subjective Patient reports: still having pain, nausea and afebrile; denies diarrhea, vomiting and shortness of breath Interval history since last seen: He states the IV Dilaudid only helps diminish his pain for appx 40 mins. Pain, overall, rated as a 6-7/10 but still intermittently higher. Exam Const General: cooperative and ill appearing Nutritional Appearance: average body habitus Orientation: alert and oriented x3 Resp Effort & Inspection: normal respiratory effort Auscultation: clear to auscultation bilaterally Cardio Rate: regular rate Rhythm: regular rhythm Heart Sounds: S1 normal and S2 normal GI Palpation: soft and tender in the LUQ Auscultation: hypoactive bowel sounds Extrem General: no pedal edema and no calf tenderness Objective Last Vital Signs Temp 37.1 C 02/05/20 15:40 Pulse 69 02/05/20 15:40 Resp 18 02/05/20 15:40 BP 122/72 02/05/20 15:40 Pulse Ox 97 02/05/20 15:40 Laboratory Results - last 24 hr 02/04/20 02/05/20 02/05/20 15:10 06:10 06:10 WBC RBC Hgb Hct MCV MCH MCHC RDW Plt Count MPV Immature Gran % Neutrophils % Lymphocytes % Monocytes % Eosinophils % Basophils % Nucleated RBC % Absolute Neutrophils Absolute Lymphocytes Absolute Monocytes Absolute Eosinophils Absolute Basophils Sodium 139 Potassium 3.3 L Chloride 105 Carbon Dioxide 26.1 Anion Gap 7.9 BUN 8 D Creatinine 0.81 Estimated GFR/1.73 m2 >= 60.00 Glucose 77 Calcium 8.5 Magnesium 1.6 L Total Bilirubin 0.9 AST 14 L ALT 15 L Alkaline Phosphatase 37 L Total Protein 6.2 L Albumin 3.4 Lipase 4112 H COVID-19 PCR Negative Nasopharyn COVID-19 PCR Not Applicable Ref Test [facility] 06:10 WBC 9.53 RBC 4.48 Hgb 13.9 D Hct 40.2 MCV 89.7 MCH 31.0 MCHC 34.6 RDW 13.1 Plt Count 141 MPV 10.0 Immature Gran % 0.2 Neutrophils % 78.4 Lymphocytes % 10.6 Monocytes % 9.9 Eosinophils % 0.8 Basophils % 0.1 Nucleated RBC % 0 Absolute Neutrophils 7.47 H Absolute Lymphocytes 1.01 L Absolute Monocytes 0.94 H Absolute Eosinophils 0.08 Absolute Basophils 0.01 Sodium Potassium Chloride Carbon Dioxide Anion Gap BUN Creatinine Estimated GFR/1.73 m2 Glucose Calcium Magnesium Total Bilirubin AST ALT Alkaline Phosphatase Total Protein Albumin Lipase COVID-19 PCR Nasopharyn COVID-19 PCR Ref Test Perform Site
[2020-02-05] MEDS: Prochlorperazine 10 MG/2 ML VIAL IVP ×2 (17:48→21:07)
[2020-02-05] MEDS: Pantoprazole 40 MG VIAL IVP (17:53)
[2020-02-05] MEDS: Normal Saline 50 ML 200 ML IVPB (17:54)
[2020-02-05 19:43] VITALS: BP 124/70; PULSE 68; RESP 17; TEMP 37; O2SAT 97
--- NOTE | 2020-02-05 20:13 | INITIAL_ITS ---
- If Service Date Differs Date of service: 02/05/20 Time of Service: 20:13 Care Management Initial Assess REASON FOR HOSPITALIZATION:: Acute Pancreatitis PAST MEDICAL HISTORY/PAST SURGICAL HISTORY:: Medical History. Anxiety (02/19/13). COVID-19. Depressive disorder (12/09/12). RASHAAD (generalized anxiety disorder). 04/29/19 Inpatient [facility] for SI. Guttate psoriasis. 12/14/18- [facility] dermatology. Oren Pena MD. 10/27/19 psoriasis including penile areas [facility] Dr Christy Merino MD. Insomnia (06/25/13). Scoliosis. Spina bifida. Surgical History. H/O arthroscopic knee surgery. History of lumbar fusion. Spinal Fusion (02/25/13). L4,5 PREVIOUS FUNCTIONAL STATUS/SOCIAL/FAMILY SUPPORTS:: Per chart review, Shravan lives in [place] with his fiance, but his address in chart is listed as [place]. Shravan has chronic pain due to a spinal fracture when he was a teenager. He is independent at baseline. CURRENT FUNCTIONAL STATUS:: CM was unable to visit with Shravan today. Per chart review, Shravan has a history of anxiety and depression. He has chronic pain due to a back injury when he was a teenager. Per report, his pain has been difficult to control. His toxicology screen was positive for THC and Opiates, which may indicate a high tolerance to medication. He continues to be monitored, and is NPO with ice chips/sips as needed. CM will continue to follow. ADVANCE DIRECTIVES:: None on file, CM will offer [place] AD forms. Has patient been provided with info about the portal/API?: Yes Did the patient sign up for the portal?: Yes (previously) CODE STATUS:: Full Code INSURANCE COVERAGE / FINANCIAL ISSUES:: [employer] CURRENT HOME/COMMUNITY SERVICES/EQUIPMENT:: No known services or equipment. PRIMARY CARE PHYSICIAN:: Nicci Lo POTENTIAL DISCHARGE NEEDS:: Evaluations for further needs, follow up appointments. PATIENT/FAMILY EDUCATION NEEDS:: Review discharge instructions regarding activity levels and medications, discussion of self care needs including ask me three. ANTICIPATED BARRIERS TO DISCHARGE:: None identified. TRANSPORTATION:: Via private vehicle by family. PLAN:: Anticipate Shravan will return home when medically cleared. He will be driven home via private vehicle by family. He will follow up with his PCP and discharge plan of care. CM will continue to follow.
[2020-02-05] MEDS: Zolpidem 6.25 MG TABCR PO (23:08)
[2020-02-06] VITALS: BP 123/65; PULSE 67; RESP 17; TEMP 37.2; O2SAT 98
[2020-02-06 03:38] VITALS: BP 130/70; PULSE 80; RESP 18; TEMP 37.2; O2SAT 97
[2020-02-06] MEDS: HYDROmorphone 2 MG/ML VIAL IVP ×4 (05:56→16:35)
--- NOTE | 2020-02-06 06:05 | NUR.NOTE ---
Pt asked [employer] TRIMMER to have nurse bring pain meds. This RN responded soon thereafter and found patient to be asleep (eye mask down, snoring, did not respond to his name) This RN left. Patient awoke and asked [employer] for nurse again. At this time, this RN was in another room, involved in a detailed and time consuming intervention. Patient called again, SE[employer]MER responded at which point patient became verbally abuse and per [employer] used foul language. This RN obtained pain medication and went to room. Patient was told that abusive and foul language are not acceptable, especially towards a nurses aide, who has no control over situation. Patient called this RN a liar, stated that he had not gone back to sleep and that his excruciating pain was intolerable. Also asked why the other patient was more important than him, because the other patients pain couldn't be as bad as his.Belligerently argumentative to the point that this RN stopped addressing, and informed patient he could speak to recreational vehicle resort manager about complaint today. Nursing Note:
[2020-02-06 07:22] LABS: ALT 13 U/L (16-63); AST 13 U/L (15-37); Alkaline Phosphatase 31 U/L (46-116); Anion Gap 7.8 mmol/L (3-11); BUN 4 mg/dL (7-18); Bilirubin, Total 0.9 mg/dL (0.2-1.0); CO2 26.2 mmol/L (21.0-32.0); CREATININE 0.81 mg/dL (0.70-1.30); Calcium 8.2 mg/dL (8.5-10.1); Chloride 108 mmol/L (98-107); Glucose 83 mg/dL (74-106); Potassium 3.4 mmol/L (3.5-5.1); Sodium 142 mmol/L (136-145); Total Protein 5.7 g/dL (6.4-8.2)
[2020-02-06 08:01] VITALS: BP 130/70; PULSE 99; RESP 18; TEMP 37; O2SAT 99
[2020-02-06] MEDS: Normal Saline 50 ML 200 ML IVPB ×2 (08:05→16:58)
[2020-02-06] MEDS: Prochlorperazine 10 MG/2 ML VIAL IVP ×2 (08:05→16:59)
[2020-02-06] MEDS: LORazepam 0.5 MG TAB PO ×2 (08:18→17:58)
--- NOTE | 2020-02-06 11:20 | W.PM.PROGNOT ---
Date of Service Date of service: 02/06/20 Time of Service: Assessment and Plan Assessment and plan (1) Acute pancreatitis: Status: Acute Assessment and plan: Will advance to clear liquid diet and then advance as tolerated. Initiate oral hydromorphone prn and change interval for prn IV hydromorphone from Q2H to Q3H. Cont prn toradol and compazine. Qualifiers: Acute pancreatitis complication: no infection or necrosis Pancreatitis type: idiopathic Qualified Code(s): K85.00 - Idiopathic acute pancreatitis without necrosis or infection Subjective Subjective Patient reports: feels better, still having pain (Pain now mostly 5/10 with intermittently increasing to 8/10) and afebrile; denies diarrhea, nausea and vomiting Exam Const General: cooperative and no acute distress Nutritional Appearance: average body habitus Orientation: alert and oriented x3 Resp Effort & Inspection: normal respiratory effort Auscultation: clear to auscultation bilaterally Cardio Rate: regular rate Rhythm: regular rhythm Heart Sounds: S1 normal and S2 normal GI Palpation: soft and tender in the LUQ (Mild w/o guarding/rebound) Extrem General: no pedal edema and no calf tenderness Objective Last Vital Signs Temp 37.0 C 02/06/20 08:01 Pulse 99 H 02/06/20 08:01 Resp 18 02/06/20 08:01 BP 130/70 02/06/20 08:01 Pulse Ox 99 02/06/20 08:01 Laboratory Results - last 24 hr 02/06/20 06:35 Sodium 142 Potassium 3.4 L Chloride 108 H Carbon Dioxide 26.2 Anion Gap 7.8 BUN 4 L Creatinine 0.81 Estimated GFR/1.73 m2 >= 60.00 Glucose 83 Calcium 8.2 L Total Bilirubin 0.9 AST 13 L ALT 13 L Alkaline Phosphatase 31 L Total Protein 5.7 L Albumin 3.0 L
[2020-02-06 11:44] VITALS: BP 135/69; PULSE 109; RESP 17; TEMP 36.7; O2SAT 97
[2020-02-06] MEDS: Polyethylene Glycol 3350 17 GM PACKET PO (13:24)
[2020-02-06] MEDS: HYDROmorphone 2 MG TAB PO ×3 (13:24→21:59)
[2020-02-06] MEDS: POTASSIUM CHLORIDE/0.9% NACL 1,000 ML 100 MEQ IV (14:35)
[2020-02-06 15:37] VITALS: BP 132/75; PULSE 67; RESP 18; TEMP 36.8; O2SAT 99
--- NOTE | 2020-02-06 16:10 | CMPROGNOTE_ITS ---
- If Service Date Differs Date of service: 02/06/20 Time of Service: 16:10 Care Management Progress Note S/O: Shravan was sitting up in bed when CM met with him today. His door has been closed most of the day, with his light off, which is how he requested it remain. He stated that he is feeling much better today, but still having a lot of uncontrolled pain. He stated that he was switched from IV pain meds to oral, and his pain has not been well controlled. He stated that his pain is close to the same level of pain from when he broke his back. He has broken his back twice- once in 8th grade and once when he was 17. 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 He stated that this year has been very hard because of Covid, losing his job (d/t [employer]), and losing his mom, who took her own life in July. He moved back to [place] after losing his mother, and lives alone with his two dogs. He reported that he has never had pancreatitis. He asked for CM to address his pain with the provider, as well as his IV access causing discomfort. CM will relay this information to the provider. CM will continue to follow. A: Shravan is a 24 year old male admitted to [facility] on 02/04/20 with acute pancreatitis. P: Anticipate Shravan will return home when medically cleared, with no additional services. He will follow up with his PCP and discharge plan of care. He will be driven home via private vehicle by family. CM will continue to follow and support discharge planning considerations.
[2020-02-06] MEDS: Ketorolac 30 MG/ML VIAL IVP (16:57)
[2020-02-06] MEDS: Senna TAB 1 TAB PO (17:57)
[2020-02-06] MEDS: Zolpidem 6.25 MG TABCR PO (21:57)
[2020-02-06 22:06] VITALS: BP 126/73; PULSE 68; RESP 17; TEMP 37.2; O2SAT 99
[2020-02-07] MEDS: HYDROmorphone 2 MG/ML VIAL IVP ×2 (00:19→06:20)
[2020-02-07] MEDS: POTASSIUM CHLORIDE/0.9% NACL 1,000 ML 100 MEQ IV (00:23)
[2020-02-07] MEDS: Docusate Sodium 100 MG CAP PO (03:06)
[2020-02-07] MEDS: HYDROmorphone 2 MG TAB PO ×3 (03:06→12:13)
[2020-02-07 03:13] VITALS: BP 111/63; PULSE 64; RESP 16; TEMP 37.1; O2SAT 96
[2020-02-07] MEDS: Ketorolac 30 MG/ML VIAL IVP (05:51)
[2020-02-07] MEDS: Prochlorperazine 10 MG/2 ML VIAL IVP (05:51)
[2020-02-07] MEDS: LORazepam 0.5 MG TAB PO (06:28)
[2020-02-07 07:17] VITALS: BP 146/76; PULSE 66; RESP 17; TEMP 37.3; O2SAT 96
[2020-02-07 07:22] LABS: Platelet Count 181 10^3/uL (130-400)
[2020-02-07] MEDS: Polyethylene Glycol 3350 17 GM PACKET PO (08:10)
[2020-02-07] MEDS: Tamsulosin 0.4 MG CAPCR 0.8 MG PO (10:33)
[2020-02-07 11:03] VITALS: BP 149/85; PULSE 74; RESP 19; TEMP 36.7; O2SAT 95
--- NOTE | 2020-02-07 12:51 | W.PM.DS.N ---
Date of service: 02/07/20 Time of Service: 12:51 DS: Diagnosis Discharge Diagnosis (1) Acute pancreatitis: Status: Acute Discharge Plan Disposition Patient Disposition: HOME Condition: Improving Discharge Details Reason For Visit: ACUTE PANCREATITIS Admit Date/Time: 02/04/20 14:53 Admit Provider: Matthew Tena Attending Provider: Matthew Tena Primary Care Provider: Nicci Lo Hospital Course Hospital Course: 24-year-old male with a history of psoriasis currently well controlled Skyrizi. Patient became infected in October with SARS-CoV-2 after he had travel to [place]. Symptoms at that time include headache and myalgias and loss of sense of taste and smell. He says he still has a decreased sense of taste and smell although that is coming back. He gets some paresthesias in his legs since his COVID-19 infection. He presented the emergency department with acute onset of nausea and vomiting and epigastric and back pain. Started as back pain on Friday night and then progressed to epigastric pain and nausea and vomiting. He called his primary care provider today who referred him to the emergency department. Evaluation emergency department clued routine labs that demonstrated pancreatitis with elevated lipase of 7400 associated with hypokalemia 3.2. Bilirubin was elevated at 1.4 with normal alkaline phosphatase and normal transaminases. His CBC showed a leukocytosis of 11,000 but no anemia. Serum calcium was normal at 9.7. CT per renal colic profile without contrast demonstrate evidence of pancreatitis with peripancreatic streaking with no pseudocyst and no abscess. No renal calculi and no hydronephrosis was seen. Subsequent ultrasound of the abdomen demonstrated normal liver size and shape with no focal hepatic lesions and no cholelithiasis or biliary dilatation. No gallbladder wall thickening and no pericholecystic fluid collection. Pancreatic head was thickened and edematous which showed peripancreatic edema with mild free fluid noticed in Morison's pouch adjacent to the pancreatic head. Kidneys and spleen were unremarkable. Patient was treated with IV morphine and IV Dilaudid and Zofran and he was given IV fluid bolus. He was admitted for treatment of acute pancreatitis. He was kept NPO with only sips of water and ice chips. IV dilaudid initiated for pain control with oral dilaudid and IV toradol subsequently added. Phenergan, then compazine started for nausea. He gradually improved and and transitioned to a clear liquid diet. He will d/c with dilaudid 2 mg Q6H prn pain, #20. F/U with PCP in the next 3-7 days Home Meds and New Rx's Prescriptions: New hydroxyzine HCl 50 mg Tablet 50 mg PO TID PRN PRN (Reason: anxiety) Qty: 0 RF: 0 hydromorphone 2 mg Tablet 2 mg PO Q6H PRNQty: 20 RF: 0 polyethylene glycol 3350 17 gram Powder In Packet 17 g PO DAILY Qty: 0 RF: 0 Continued tizanidine [Zanaflex] 4 mg tablet 16 mg PO HS MDD 4 tabs PRN (Reason: muscle spasticity) Qty: 360 RF: 1 sildenafil 100 mg tablet See Rx Instructions PO DAILY PRN (Reason: sexual activity) Qty: 30 RF: 1 fluticasone propionate [Flonase Allergy Relief] 50 mcg/actuation spray,suspension 2 spray LEW DAILY PRN (Reason: nasal congestion) Qty: 9.9 RF: 0 lorazepam 0.5 mg tablet 0.5 mg PO BID PRN (Reason: anxiety) Qty: 56 RF: 0 zolpidem 10 mg tablet 10 mg PO QHS PRN (Reason: sleep) Qty: 90 RF: 0 clonidine HCl 0.2 mg tablet 0.2 mg PO TID PRN (Reason: anxiety) Qty: 90 RF: 3 Medical Marijuana RF: 0 buspirone 15 mg tablet 30 mg PO BID Qty: 120 RF: 6 ibuprofen 800 mg tablet 800 mg PO TID PRN (Reason: pain) Qty: 90 RF: 3 risankizumab-rzaa 75 mg/0.83 mL syringe See Rx Instructions SC PER PKG DIR RF: 0 acetaminophen 325 mg Tablet 650 mg PO PRN PRNRF: 0 hydroxyzine HCl 50 mg tablet 50 mg PO TID PRN PRNRF: 0 bupropion HCl [Wellbutrin SR] 100 mg tablet sustained-release 12 hr 100 mg PO BID RF: 0 Discharge Instructions Instructions: Pancreatitis (DC) Stand Alone Forms: Nursing Discharge Form Referrals: Nicci Lo NP [Primary Care Provider] - 02/10/20 1:45 pm Activity:: Activity as Tolerated Equipment/Supplies:: No Equipment Needed Diet:: As Tolerated Discharge Orders Discharge Orders: Discharge Order (Routine); Ordered 02/07/20 Ordered By: Craig Cordova Discharge Data Discharge Date/Time-TO BE ENTERED AT DEPARTURE: 02/07/20 14:07 DS: Summary Status at Discharge Functional status at discharge: independent ambulation Overall status at discharge: patient is progressing back to baseline Mental Status: mental status grossly normal Speech and Movement: speech and movement normal Mood: congruent mood Affect: normal affect Exam Const General: cooperative and no acute distress Nutritional Appearance: average body habitus Orientation: alert and oriented x3 Resp Effort & Inspection: normal respiratory effort Auscultation: clear to auscultation bilaterally Cardio Rate: regular rate Rhythm: regular rhythm Heart Sounds: S1 normal and S2 normal GI Inspection: normal to inspection Palpation: soft and tender in the LUQ (mild w/o guarding or rebound) Extrem General: no pedal edema and no calf tenderness Psych Mental Status: mental status grossly normal Speech and Movement: speech and movement normal Mood: congruent mood Affect: normal affect DS: Data Vitals/I&O Vitals and I&O: Vital Signs Temperature 36.7 C 02/07/20 11:03 Temperature Source Tympanic 02/07/20 11:03 Pulse 74 02/07/20 11:03 Pulse Rhythm Regular 02/07/20 08:00 Pulse 42 L 02/04/20 15:46 Respiratory Rate 19 02/07/20 11:03 Respiratory Effort Non-Labored 02/07/20 08:00 Respiratory Depth Normal 02/07/20 08:00 Respiratory Pattern Normal 02/07/20 08:00 Blood Pressure 149/85 H 02/07/20 11:03 Blood Pressure Mean 91 02/04/20 15:46 Blood Pressure Position Sitting 02/04/20 11:53 Pulse Oximetry 95 02/07/20 11:03 Oxygen Delivery Method Room Air 02/07/20 11:03 Oxygen Flow Rate 0 02/07/20 11:03 Pain Level 4 02/07/20 12:13 Intake & Output 02/06/20 02/07/20 02/07/20 23:59 11:59 23:59 Intake Total 500 / 2100 1520 / 1520 Output Total 1825 / 2225 400 / 2225 Balance 500 / 1550 -305 / -705 -400 / -705 Weight 80.2 kg Intake: IV 100 / 1700 980 / 980 Oral 400 / 400 540 / 540 Output: Urine 1825 / 2225 400 / 2225 Other: Urine Color Yellow Pale Urine Appearance Clear Clear Clear Comment per pt void x1 toilet Voiding Methods Toilet Urinal Urinal Incontinent Data Completed and Pending Labs on day of discharge: Labs from last 24 hours 02/07/20 06:14 Plt Count 181 PFSH Medical History Anxiety (02/19/13) COVID-19 Depressive disorder (12/09/12) RASHAAD (generalized anxiety disorder) 04/29/19 Inpatient [facility] for SI Guttate psoriasis 12/14/18- [facility]. Oren Pena MD 10/27/19 psoriasis including penile areas [facility] Dr Christy Merino MD Insomnia (06/25/13) Scoliosis Spina bifida Surgical History H/O arthroscopic knee surgery History of lumbar fusion Spinal Fusion (02/25/13) L4,5 Social History Smoking/Tobacco Use Status: Never Smoking risk assessment performed?: Yes Alcohol Intake: current Alcohol Intake frequency: a few times a week Drug use: Daily Substance use type: marijuana What type of physical activity do you participate in: walking, aerobic, swimming and weight lifting Frequency: 3-4 times per week Do you feel safe at home: Yes Do you feel safe in your relationship?: Yes
--- NOTE | 2020-02-07 13:31 | W.NUTRFU ---
Date of service: 02/07/20 Time of Service: 13:31 Nutritional Follow up NOTE: Shravan was admitted 02/04/20 with acute pancreatitis due most likely in part to excessive ETOH use. BMI wnl and stable. Lipase trending down, tolerating clear liquids today. Reviewed appropriate diet s/p pancreatitis. Provided educational material for nutrition care manual and contact information for follow up concerns. Will continue to follow. Time Spent in Nutritional Counseling and Treatment: 10 min
--- NOTE | 2020-02-07 13:39 | PDOC.CMDIS ---
- If Service Date Differs Date of service: 02/07/20 Time of Service: 13:39 LACE Index Scoring Tool - Questions: Length of Stay (in days): 4 - 6 Acuity (Admit via E.D.?): Yes E.D. Visits: 1 - Answers: Total Score: 8 Risk of Readmission: Low Risk Care Management Discharge Reason for Hospitalization: Acute Pancreatitis Discharge Plan: Shravan will return home with no additional services at this time. His brother will drive him home via private vehicle. He will follow up with his PCP and discharge plan of care. He is happy to be going home. Patient/Family Education Needs: Review discharge instructions regarding activity levels and medications, discussion of self care needs including ask me three.
== END 2020-02-07 14:07 | disposition home or self-care (01) | DRG 440 ==
LOC: ER 16:08 → MS 16:10
PROVIDERS: Family Medicine; Admitting Provider Internal Medicine; Emergency Provider Registered Nurse Emergency; PCP Nurse Practitioner; Visit Provider Internal Medicine
DX: K85.00 Idiopathic acute pancreatitis without necrosis or infection (principal); F51.05 Insomnia due to other mental disorder; L40.9 Psoriasis, unspecified; R43.8 Other disturbances of smell and taste; E87.6 Hypokalemia; D72.829 Elevated white blood cell count, unspecified; F32.9 Major depressive disorder, single episode, unspecified; F41.1 Generalized anxiety disorder; Z86.19 Personal history of other infectious and parasitic diseases
CPT/HCPCS: 36415; 80053; 80307; 83690; 96361; 96374; 96375; 96376; 99223; 99232; 99239; 99285; U0003; 74176; 76705; 81003; 81015; 83735; 84478; 85025; 85049; 87086; J0780; J1885; J2405; J3490; J7042

== ENCOUNTER 2020-03-28 03:41 | Outpatient (CLI) | payer OTHER, SELFPAY ==
[2020-03-29 19:09] LABS: COVID-19 RT-PCR UVMMC Result Negative (Negative)
== END 2020-03-28 04:01 ==
PROVIDERS: PCP Nurse Practitioner; Visit Provider Nurse Practitioner
DX: Z20.822 Contact with and (suspected) exposure to COVID-19 (principal)
CPT/HCPCS: U0003

== ENCOUNTER 2020-06-21 19:06 | Outpatient (REF) | payer OTHER, SELFPAY ==
[2020-06-21 19:43] LABS: ALT 22 U/L (16-63); AST 16 U/L (15-37); Albumin 4.8 g/dL (3.4-5.0); Alkaline Phosphatase 51 U/L (46-116); Anion Gap 4.2 mmol/L (3-11); BUN 19 mg/dL (7-18); Bilirubin, Total 0.7 mg/dL (0.2-1.0); CO2 31.8 mmol/L (21.0-32.0); Calcium 9.4 mg/dL (8.5-10.1); Calculated LDL 68 mg/dL (<100); Chloride 103 mmol/L (98-107); Cholesterol 140 mg/dL (<200); Glucose 100 mg/dL (74-106); HDL Cholesterol 63 mg/dL (40-60); Potassium 4.3 mmol/L (3.5-5.1); Sodium 139 mmol/L (136-145); Total Protein 7.7 g/dL (6.4-8.2); Triglyceride 45 mg/dL (<150)
== END 2020-06-21 19:07 | disposition home or self-care (01) ==
LOC: LBN 19:06
PROVIDERS: PCP Nurse Practitioner; Visit Provider Nurse Practitioner
DX: R79.89 Other specified abnormal findings of blood chemistry (principal); Z13.220 Encounter for screening for lipoid disorders
CPT/HCPCS: 80053; 80061

== ENCOUNTER 2020-07-11 01:07 | Outpatient (CLI) | payer OTHER, SELFPAY ==
--- NOTE | 2020-07-11 09:45 | DI.MRI_ITS ---
Exam(s) MR LUMBAR SPINE WO EXAM: MR LUMBAR SPINE WO CLINICAL HISTORY: chronic low back pain,scolisis, spina bifida,m54.5,m41.9,Q05.9. TECHNIQUE: Multiplanar multisequence MRI of the Lumbar spine was performed. COMPARISON: No exams were available for comparison FINDINGS: Bones: The last intervertebral disc space is designated the L5/S1 level for the numbering purpose of this examination. The vertebral body heights are well maintained. Alignment is satisfactory. The si gnal characteristics are unremarkable. Posterior spinal surgery at L5-S1. Cord: The conus tip ends at the T12 level. It is of normal size and signal intensity. T12-L1: No disc herniations or bulges are present. No central spinal canal or neural foraminal stenos is. L1-2: No disc herniations or bulges are present. No central spinal canal or neural foraminal stenosis . L2-3: No disc herniations or bulges are present. No central spinal canal or neural foraminal stenosis . L3-4: No disc herniations or bulges are present. No central spinal canal or neural foraminal stenosis . L4-5: There is a left lateral disc bulge. No significant central spinal canal stenosis. There is mi ld left neural foraminal stenosis. No significant right neural foraminal stenosis. L5-S1: No disc herniations or bulges are present. No central spinal canal or neural foraminal stenosi s. Soft tissues: The visualized SI joints and sacrum are well maintained. The paraspinal soft tissues ar e unremarkable. IMPRESSION: 1. Left lateral disc bulge at L4-5 causing mild left neural foraminal stenosis. 2. Posterior spinal surgery at L5-S1. DATA REPOSITORY:
== END 2020-07-11 01:27 ==
PROVIDERS: PCP Nurse Practitioner; Visit Provider Nurse Practitioner
DX: M54.5 Low back pain (principal); M41.86 Other forms of scoliosis, lumbar region; M51.26 Other intervertebral disc displacement, lumbar region; Z98.890 Other specified postprocedural states; G89.29 Other chronic pain
CPT/HCPCS: 72148

== ENCOUNTER 2020-09-04 01:38 | Outpatient (CLI) | payer OTHER, SELFPAY ==
--- NOTE | 2020-09-04 08:30 | DI.RAD_ITS ---
Exam(s) XR SCOLIOSIS T-L SPINE EXAM: XR SCOLIOSIS T-L SPINE CLINICAL HISTORY: thoracic back pain, h/o levoscoliosis T4-5, SCOLIOSIS, M41.9. TECHNIQUE: 2D digital imaging was performed. COMPARISON: CR XR CHEST 2V PA LATERAL from 03/08/2019 CR XR CHEST 2V PA LATERAL from 03/08/[address] RENAL COLIC WO from 02/04/[address] RENAL COLIC WO from 02/04/2020 FINDINGS: Again noted are posterior fusion rods and intrapedicular screws at L5-S1 level and also appears to be a disc space divide ower at L5-S1. The 12th ribs are rudimentary. There is no evidence of scoliosis in the lumbosacral spinal column. There is a scoliosis convex left in the upper thoracic spine at T2-T7 level, having epicenter at T4 level.. There is a possibility o f a developmental anomaly of T4 vertebral body which, if clinically indicated, can be further study w ith CT scan. There is widening of the space between the left 4th and 5th ribs. Cabral angle measurement is derived off the inferior endplate of T2 and inferior endplate of T6 and keren cribes an angle of approximately 23 degrees. Sacroiliac joints appear unremarkable. Hips appear unremarkable. As described above, there is no sc oliosis in the lumbosacral spinal column and the height of the iliac crests is equal bilaterally. IMPRESSION: Levoscoliosis confined to the thoracic spine as described above. If clinically indicated further stephon dy with CT scan with reconstructions can be performed to define presence of developmental anomaly of 1 of these thoracic vertebrae as etiologic for the scoliosis. DATA REPOSITORY: RADIATION DOSE DELIVERED:
== END 2020-09-04 01:58 ==
PROVIDERS: PCP Nurse Practitioner; Visit Provider Nurse Practitioner Family
DX: M41.84 Other forms of scoliosis, thoracic region (principal)
CPT/HCPCS: 72081

== ENCOUNTER 2020-09-04 18:54 | Emergency (ER) | payer OTHER, SELFPAY ==
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
[2020-09-04 18:54] VITALS: BP 139/73; PULSE 107; RESP 16; TEMP 36.7; O2SAT 97
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
[2020-09-04] MEDS: Ibuprofen 800 MG TAB PO (19:04)
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
[2020-09-04 20:24] VITALS: BP 123/75; PULSE 87; RESP 16; TEMP 36.9; O2SAT 98
== END 2020-09-04 20:35 | disposition home or self-care (01) ==
PROVIDERS: Emergency Provider Emergency Medicine; PCP Nurse Practitioner
DX: S16.1XXA Strain of muscle, fascia and tendon at neck level, initial encounter (principal); V40.0XXA Car driver injured in collision with pedestrian or animal in nontraffic accident, initial encounter
CPT/HCPCS: 99283; 72040

== ENCOUNTER 2020-11-23 09:00 | Outpatient (CLI) | payer OTHER, SELFPAY ==
--- NOTE | 2020-11-23 | DI.US_ITS ---
Exam(s) US PAIN CLINIC NEEDLE GUIDANCE EXAM: SCOLIOSIS WITH MECHANICAL BACK PAIN, M41.9, M54.5 COMPARISON: No exams were available for comparison TECHNIQUE: Ultrasound performed using standard protocol. FINDINGS: Sonography was provided for Dr. Enriquez during the performance of a bilateral thoracic injection. Plea se refer to the procedure report for complete details. DATA REPOSITORY:
[2020-11-23 08:59] VITALS: BP 121/71; PULSE 64; RESP 18; TEMP 37; O2SAT 100
--- NOTE | 2020-11-23 09:51 | PDOC.PAIN_ITS ---
Pain Clinic Procedure Note Procedure Note Procedure Note: ULTRASOUND GUIDED bilateral thoracic and rhomboid muscle trigger point injections Pre-Procedural Evaluation: Shravan Cruz has been referred to the [facility] for an Ultrasound Guided bilateral thoracic and rhomboid trigger point injection for a chief complaint of mid-back pain. Pre-procedure Pain Score: 4/10 DX: Muscle pain Patient was interviewed and the medical record reviewed. There were no medical, pharmacologic, radiographic, or other structural contraindications to preforming an ultrasound guided injection. Risks and expected side effects as well as potential benefits of the procedure were reviewed. The patient consent form was signed and witnessed. Standard time-out procedure was performed. The use of direct ultrasound visualization of the needle (rather than a non- guided injection) was required to increase patient safety by excluding inadvertent intramuscular, intratendinous, or intraneural needle placement and minimizing bleeding by avoiding osteochondral or vascular injury from the needle. Additionally, the increased accuracy of placement may increase clinical effectiveness and will allow higher diagnostic specificity when evaluating effectiveness of this injection. Procedure Description: The patient was placed in the PRONE position and automated blood pressure cuff and pulse oximeter applied for monitoring during the procedure and recorded in the medical record. Pre-injection ultrasound scanning of the area of interest was performed using linear transducer, identifying relevant anatomy, landmarks, and neurovascular structures allowing for optimal needle path. The site was then prepared in the usual sterile fashion, using thorough Chlorhexadine preparation of the skin and sterile draping. The same ultrasound transducer was then passed into the sterile field using sterile probe cover and sterile ultrasound gel. The injection target was again visualized. Skin and subcutaneous tissues were anesthetized with 5 mL of 1% Lidocaine. A 21 guage 3.5 Pajunk ultrasound needle inch was placed under live ultrasound guidance, using an in-plane approach, to the target area. After visualization of the needle tip at the target area, a mixture of 5 cc of 2% Lidocaine and 40 mg of Depomedrol (40 mg/cc), totaling 6 mL of injectate was delivered after negative aspiration for blood. Ultrasound images were captured and stored for documentation purposes. Post-procedure Pain Score:2/10 Vital signs were stable throughout the procedure and were as recorded in the docflowsheet by the nursing staff. Follow up plans and appointments were discussed with the patient.Post procedure instruction was given as documented in nursing documentation and having met discharge criteria, they were discharged from the [facility]. COMMENTS: Doing well after the procedure Madhu Enriquez DO, MPH Pain Management
[2020-11-23] MEDS: methylPREDNISolone ACETATE 40 MG/ML VIAL IJ (09:59)
[2020-11-23 10:00] VITALS: PULSE 66; O2SAT 99
[2020-11-23] MEDS: Lidocaine 2% Pres-Free 5 ML VIAL IJ (10:00)
== END 2020-11-23 09:20 ==
PROVIDERS: PCP Nurse Practitioner; Visit Provider Preventive Medicine Occupational Medicine
DX: M79.18 Myalgia, other site (principal); M54.6 Pain in thoracic spine
CPT/HCPCS: 20553; 76942; J1030

== ENCOUNTER 2020-12-05 12:22 | Emergency (ER) | payer OTHER, SELFPAY ==
[2020-12-05] VITALS (52 sets, daily range): BP systolic 95–141; BP diastolic 54–98; PULSE 64–124; RESP 6–30; TEMP 36.9; O2SAT 97–100
--- NOTE | 2020-12-05 12:54 | W.ED.GENAD ---
Discharge Plan Disposition Patient Disposition: HOME Condition: Improving Discharge Details Clinical Impression: Acute dehydration Primary Care Provider: Unknown,Unknown ED Provider: Elliott Pena Home Meds and New Rx's Prescriptions: Continued clonidine HCl 0.2 mg tablet 0.2 mg PO TID PRN (Reason: anxiety) Qty: 90 RF: 3 sildenafil 100 mg tablet See Rx Instructions PO DAILY PRN (Reason: sexual activity) Qty: 30 RF: 1 meloxicam 15 mg tablet 15 mg PO DAILY PRN (Reason: back pain) 30 Days Qty: 30 RF: 5 lorazepam 1 mg tablet 1 mg PO DAILY PRN (Reason: anxiety) Qty: 90 RF: 1 zolpidem 10 mg tablet 10 mg PO QHS PRN (Reason: sleep) Qty: 90 RF: 1 methylphenidate HCl 10 mg tablet 10 mg PO DAILY MDD 54 Concerta, 10 Methyphenidate Qty: 28 RF: 0 methylphenidate HCl [Concerta] 54 mg tablet extended release 24hr 54 mg PO DAILY MDD 54 concerta, 10 IR methylphen. Qty: 28 RF: 0 Medical Marijuana RF: 0 risankizumab-rzaa 75 mg/0.83 mL syringe See Rx Instructions SC PER PKG DIR RF: 0 tizanidine [Zanaflex] 4 mg tablet 16 mg PO HS MDD 4 tabs PRN (Reason: muscle spasticity) Qty: 360 RF: 1 acetaminophen 325 mg Tablet 650 mg PO PRN PRNRF: 0 Discharge Instructions Instructions: Dehydration (ED) Additional Instructions: Home to rest. Continue small, frequent sips of fluid so that you maintain good hydration Return to the ER for any acute concerns. Medical Decision Making 25-year-old male who is immunosuppressed for treatment of psoriasis. He received his third month during a COVID-19 immunization on this past Friday and has had increased need for sleep, generalized weakness, decreased p.o. intake and decreased urine output since that time. He arrives to the ER afebrile, alert and interactive but with a blood pressure of 95/74 and a resting heart rate of 124. His exam reveals fairly impressively cracked and dried lips. Most consistent with vaccine reaction and subsequent dehydration. Must exclude electrolyte abnormality. Patient IV access established, laboratories obtained given 2 L normal saline fluid bolus. Labs note white count of 7, hematocrit 50 likely denoting hemoconcentration, platelets 221. Chemistries with sodium 141, potassium 3.9, chloride 100, bicarb 25, BUN 27, creatinine 1.2, glucose of 60. Urine with ketones and concentrated. Following 2 L of fluid and some dextrose containing fluids patient is improving and able to take both liquids and solids by mouth. Subjectively feels better. At approximately 6 PM, patient requesting discharge to home. He is stable and improved. HPI General Mode of arrival: ambulatory. Date/Time Provider Initiated Documentation: 12/05/20 12:39. Limitations to Documentation: no limitations. Information obtained by: patient. History of Present Illness 25 year old M presents to the emergency department with the chief complaint of Increased sleep, decreased p.o. intake for 3 days, described as moderate, Quality is described as constant, Patient started experiencing this day(s) and it has been constant. No relieving factors improve symptom(s), No exacerbating factors reported . Patient notes loss of appetite and weakness. Patient did receive the following treatments prior to arrival, none Related Data Home Medications Medication Instructions Recorded Confirmed clonidine HCl 0.2 mg tablet 0.2 mg PO TID PRN #90 tab 05/18/19 12/05/20 risankizumab-rzaa 75 mg/0.83 mL See Rx Instructions SC PER PKG DIR 10/27/19 12/05/20 subcutaneous syringe acetaminophen 650 mg PO PRN PRN 02/04/20 12/05/20 sildenafil 100 mg tablet See Rx Instructions PO DAILY PRN 06/14/20 12/05/20 #30 tab tizanidine 4 mg tablet 16 mg PO HS PRN #360 tab MDD 4 tabs 07/11/20 12/05/20 meloxicam 15 mg tablet 15 mg PO DAILY PRN 30 Days #30 tab 08/31/20 12/05/20 lorazepam 1 mg tablet 1 mg PO DAILY PRN #90 tab 11/27/20 12/05/20 methylphenidate HCl 10 mg tablet 10 mg PO DAILY #28 tab MDD 54 11/27/20 12/05/20 Concerta, 10 Methyphenidate methylphenidate HCl 54 mg 54 mg PO DAILY #28 tab MDD 54 11/27/20 12/05/20 tablet,extended release 24 hr concerta, 10 IR methylphen. zolpidem 10 mg tablet 10 mg PO QHS PRN #90 tab 11/27/20 12/05/20 Previous Rx's Medication Instructions Recorded clonidine HCl 0.2 mg tablet 0.2 mg PO TID PRN #90 tab 05/18/19 sildenafil 100 mg tablet See Rx Instructions PO DAILY PRN 06/14/20 #30 tab tizanidine 4 mg tablet 16 mg PO HS PRN #360 tab MDD 4 tabs 07/11/20 meloxicam 15 mg tablet 15 mg PO DAILY PRN 30 Days #30 tab 08/31/20 lorazepam 1 mg tablet 1 mg PO DAILY PRN #90 tab 11/27/20 methylphenidate HCl 10 mg tablet 10 mg PO DAILY #28 tab MDD 54 11/27/20 Concerta, 10 Methyphenidate methylphenidate HCl 54 mg 54 mg PO DAILY #28 tab MDD 54 11/27/20 tablet,extended release 24 hr concerta, 10 IR methylphen. zolpidem 10 mg tablet 10 mg PO QHS PRN #90 tab 11/27/20 Allergies Allergy/AdvReac Type Severity Reaction Status Date / Time No Known Allergies Allergy Verified 12/05/20 12:45 General Stated Complaint: GenMedical ANAMIKA: 3 Review of Systems Narrative: Decreased p.o. intake, decreased urine output, generalized weakness, increased need for sleep. Chilled but no fever. No cough. 8 systems were reviewed and otherwise negative. Patient is immunosuppressed for psoriasis treatment. ON LICENSE OF [facility] Medical History Anxiety (02/19/13) COVID-19 Depressive disorder (12/09/12) RASHAAD (generalized anxiety disorder) 04/29/19 Inpatient [facility] for SI Guttate psoriasis 12/14/18- [facility]. Oren Pena MD 10/27/19 psoriasis including penile areas [facility] Dr Christy Merino MD Insomnia (06/25/13) Major depressive disorder in full remission History of major depressive disorder, recurrent , severe, with suicide attempt. see Psych eval of April 2019. Scoliosis Spina bifida Surgical History H/O arthroscopic knee surgery History of lumbar fusion Spinal Fusion (02/25/13) L4,5 Family History Mother , suicide July 2019 Alcohol abuse Social History Smoking/Tobacco Use Status: Never Smoking risk assessment performed?: Yes Alcohol Intake: current Alcohol Intake frequency: holidays/special occasions only Details: patient voluntarily stopped post admission for pancreatitis January 2020. 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 Pleasant, well groomed, interactive. HEAD: Normocephalic, atraumatic ENT: Mucous membranes dry with cracked lips, oropharynx unremarkable, External ear exam unremarkable EYES: PERRL, EOMI NECK: Full ROM, no VALERIANO, no menigismus CHEST/RESP: Nontender, clear to auscultation bilateral, no wheeze/rhonchi/rales CARDIOVASCULAR: Regular and tachycardic, no murmur, rub janeth. 2+ Rad pulse bilateral ABDOMEN: Soft, nontender, no mass. +Bowel sounds EXT: Full ROM, no edema, no rash Neuro: Grossly normal neurologic exam, conversant, interactive. Psych: Speech fluent, thoughts congruent, affect normal Course Vital Signs Vital signs: Vital Signs Temperature 36.9 C 12/05/20 12:42 Pulse 124 H 12/05/20 12:42 Respiratory Rate 18 12/05/20 12:42 Blood Pressure 95/74 L 12/05/20 12:42 Pulse Oximetry 98 12/05/20 12:42 Temperature 36.9 C 12/05/20 12:42 Pulse 124 H 12/05/20 12:42 Respiratory Rate 18 12/05/20 12:42 Respiratory Effort Non-Labored 12/05/20 12:44 Blood Pressure 95/74 L 12/05/20 12:42 Blood Pressure Position Sitting 12/05/20 12:42 Pulse Oximetry 98 12/05/20 12:42 Oxygen Delivery Method Room Air 12/05/20 12:42 Oxygen Flow Rate 0 12/05/20 12:42 Pain Level 2 12/05/20 12:42
[2020-12-05] MEDS: Normal Saline 1,000 ML 1000 ML IV ×2 (13:16→15:07)
[2020-12-05 13:35] LABS: Abs Immature Grans 0.02 10^3/uL (0.0-0.06); Absolute Basophil Count 0.03 10^3/uL (0.0-0.2); Absolute Eosinophil Count 0.03 10^3/uL (0.0-0.7); Absolute Lymphocyte Count 1.47 10^3/uL (1.2-3.4); Absolute Monocyte Count 0.56 10^3/uL (0.1-0.8); Absolute Neutrophil Count 5.26 10^3/uL (1.2-6.7); Basophils % 0.4; Eosinophils % 0.4; HCT 50.1 % (40.0-50.0); HGB 17.3 g/dL (13.5-17.5); Immature Grans % 0.3; Lymphocytes % 19.9; MCHC 34.5 % (32.0-36.0); MCV 86.8 fL (80-95); MPV 9.8 fL (8.0-11.0); Monocytes % 7.6; Neutrophils % 71.4; Nucleated RBC 0 %; Platelet Count 221 10^3/uL (130-400); RBC 5.77 10^6/uL (4.36-5.78); RDW 11.9 % (11.8-14.1); RDW-SD 37.7 fL; WBC 7.37 10^3/uL (4.4-10.8)
[2020-12-05 13:46] LABS: ALT 26 U/L (16-63); AST 30 U/L (15-37); Albumin 4.7 g/dL (3.4-5.0); Alkaline Phosphatase 48 U/L (46-116); BUN 27 mg/dL (7-18); CREATININE 1.2 mg/dL (0.70-1.30); Calcium 9.6 mg/dL (8.5-10.1); Chloride 100 mmol/L (98-107); Glucose 60 mg/dL (74-106); Magnesium 2.1 mg/dL (1.8-2.4); Potassium 3.9 mmol/L (3.5-5.1); Sodium 141 mmol/L (136-145); Total Protein 8.5 g/dL (6.4-8.2)
--- NOTE | 2020-12-05 15:09 | NUR.NOTE ---
Nursing Note: Due to lab glucose (60) -Per MD recommendations, Popsicle given to Pt to increase blood glucose.
[2020-12-05] MEDS: DEXTROSE 5%-0.9% SALINE 1,000 ML 150 ML IV (15:55)
[2020-12-05 16:56] LABS: Bilirubin Small (Negative); Blood Negative (Negative); Clarity Clear (Clear); Glucose Negative (Negative); Ketones >=160 mg/dL (Negative); Leukocyte Esterase Negative (Negative); Nitrite Negative (Negative); Specific Gravity 1.025 (1.005-1.025); Urobilinogen 0.2 EU/dL (Up TO 0.2); pH 5.5 (5-8)
== END 2020-12-05 18:05 | disposition home or self-care (01) ==
PROVIDERS: Emergency Provider Emergency Medicine
DX: E86.0 Dehydration (principal); R53.1 Weakness; R63.0 Anorexia; T50.B95A Adverse effect of other viral vaccines, initial encounter; D84.9 Immunodeficiency, unspecified; Z79.899 Other long term (current) drug therapy
CPT/HCPCS: 36415; 36416; 80053; 82962; 96361; 99284; 81003; 83735; 85025; J7042

== ENCOUNTER 2022-01-13 08:11 | Emergency (ER) | payer OTHER, SELFPAY ==
[2022-01-13 08:14] VITALS: BP 120/70; PULSE 76; RESP 16; TEMP 36.7; O2SAT 100
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
== END 2022-01-13 09:23 | disposition home or self-care (01) ==
PROVIDERS: Emergency Provider Nurse Practitioner Family
DX: S01.111A Laceration without foreign body of right eyelid and periocular area, initial encounter (principal); Z23 Encounter for immunization; Z86.16 Personal history of COVID-19; X58.XXXA Exposure to other specified factors, initial encounter
CPT/HCPCS: 90471; 99281; 99282

== ENCOUNTER 2024-08-15 18:32 | Emergency (ER) | payer BC, SELFPAY ==
[2024-08-15 18:34] VITALS: BP 136/79; PULSE 73; RESP 18; O2SAT 98
[2024-08-15 18:40] VITALS: BP 136/79; PULSE 73; RESP 18; O2SAT 98
[2024-08-15] MEDS: Ondansetron O.D.T. 4 MG TABEF 8 MG PO (18:56)
[2024-08-15] MEDS: Acetaminophen 500 MG TAB 1000 MG PO (18:56)
[2024-08-15] MEDS: Ibuprofen 600 MG TAB PO (18:57)
--- NOTE | 2024-08-15 19:00 | DI.CT_ITS ---
Exam(s) CT BRAIN NECK CTA EXAM: CT BRAIN NECK CTA CLINICAL HISTORY: headache. TECHNIQUE: Imaging Protocol: Axial CT angiography was performed with multi-slice acquisition and mu lti-planar and/or 3D reconstructions. CONTRAST MATERIAL: Intravenous: Omnipaque 350 Contrast volume:structured data in ml COMPARISON: No exams were available for comparison FINDINGS: CTA Neck W: Aortic arch anatomy: The aortic arch anatomy is conventional and there is no significant stenosis at the origin of the great vessels off of the aortic arch. No intimal flap evident. Anterior circulation: Both common carotid arteries ascend with normal luminal diameters. At the level the carotid bulbs and proximal internal carotid arteries there is minimal plaque without hemodynamically significant stenosis evident. Posterior circulation: Both vertebral arteries originate in conventional fashion off of the subclavian arteries and there is no obvious stenosis at the origin of the vertebral arteries. Both vertebral arteries exhibit normal luminal diameters within the foramen transversarium. Both vertebral arteries contribute to the formation of the basilar artery at the skull base. CTA Brain W: Anterior circulation: Both internal carotid arteries are patent in the skull base-carotid canals as well as within the cave rnous sinuses. The supraclinoid aspects of the ICAs are patent. Both A1 segments are patent as are the anterior cer ebral arteries and there is no evidence of aneurysm at the level of the anterior communicating artery . Both middle cerebral arteries are patent with no evidence of significant stenosis nor intraluminal th rombus. There also no aneurysms of these vessels. Posterior circulation: The basilar artery ascends without significant stenosis. Distally it gives off patent bilateral supe rior cerebellar arteries. Above this level the basilar artery terminates as patent bilateral posterior cerebral arteries. Ther e are posterior communicating arteries also noted on both sides the [id number]. There is no evidence of aneurysm at the tip of the basilar artery nor elsewhere in the [id number] is. CT BRAIN: There is no evidence of intracranial hemorrhage, mass effect, or shift of midline structures. There are no extra-axial fluid collections. Ventricles are not enlarged or shifted. There are no ring enh ancing lesions in the brain and no abnormal meningeal enhancement. There is a large post inflammatory retention cyst in the right maxillary sinus. There is no associat ed fluid level. Smaller post inflammatory retention cysts are noted in the opposite-left maxillary s inus, also without fluid level. The other paranasal sinuses are clear although there does appear to be a small non expansile osteoma in the right frontal sinus.. IMPRESSION: 1. Patent carotid arteries in the neck. No evidence of significant stenosis. No dissection. 2. Patent vertebral arteries. No stenosis. No dissection. 3. Patent intracranial arteries. No stenosis. No aneurysms. 4. No acute intracranial findings. No hemorrhage. No mass. No ring enhancing lesions. 5. There is a large post inflammatory retention cysts in the right maxillary sinus. There is no asso ciated fluid level. Smaller post inflammatory retention cysts are noted in the opposite-left maxilla ry sinus. Preliminary virtual Radiology report was reviewed RADIATION DOSE DELIVERED: 2,358.81mGy.cm Total DLP DATA REPOSITORY: All CT scans at this facility are submitted to the National Radiology Data Registry (NRDR) Dose Index Registry (DIR) with the [employer] (A[employer]). RADIATION OPTIMIZATION: All CT scans at this facility use at least one of these dose optimization te chniques: automated exposure control; mA and/or kV adjustment per patient size (includes targeted exa ms where dose is matched to clinical indication); or iterative reconstruction.
[2024-08-15] MEDS: Normal Saline 1,000 ML 1000 ML IV (19:31)
[2024-08-15 19:37] LABS: Abs Immature Grans 0.01 10^3/uL (0.0-0.06); Absolute Basophil Count 0.02 10^3/uL (0.0-0.2); Absolute Eosinophil Count 0.13 10^3/uL (0.0-0.7); Absolute Lymphocyte Count 2.53 10^3/uL (1.2-3.4); Absolute Monocyte Count 0.64 10^3/uL (0.1-0.8); Absolute Neutrophil Count 5.13 10^3/uL (1.2-6.7); Basophils % 0.2 %; Eosinophils % 1.5 %; HCT 42.7 % (40.0-50.0); HGB 14.8 g/dL (13.5-17.5); Immature Grans % 0.1 %; Lymphocytes % 29.9 %; MCHC 34.7 % (32.0-36.0); MCV 87 fL (80-95); MPV 9.6 fL (8.0-11.0); Monocytes % 7.6 %; Neutrophils % 60.7 %; Platelet Count 220 10^3/uL (130-400); RBC 4.93 10^6/uL (4.36-5.78); RDW 12.5 % (11.8-14.1); RDW-SD 39.5 fL; WBC 8.46 10^3/uL (4.4-10.8)
[2024-08-15 19:47] LABS: Anion Gap 7.1 mmol/L (3-11); BUN 16 mg/dL (7-18); CO2 29.9 mmol/L (21.0-32.0); Calcium 9.3 mg/dL (8.5-10.1); Chloride 104 mmol/L (98-107); Estimated GFR 104.48 (mL/min/1.73m2); Glucose 92 mg/dL (74-106); Magnesium 1.8 mg/dL (1.8-2.4); Potassium 3.4 mmol/L (3.5-5.1); Sodium 141 mmol/L (136-145)
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
[2024-08-15] MEDS: Omnipaque 350 MG/ML 100 ML BTL IJ (20:13)
[2024-08-15] MEDS: Normal Saline - Diluent 50 ML VIAL IJ (20:14)
--- NOTE | 2024-08-15 20:53 | DI.VRAD_ITS ---
PROCEDURE INFORMATION: Exam: CTA Head Without And With Contrast, Arteriography Exam date and time: 08/15/2024 7:59 PM Age: 29 years old Clinical indication: Other: Headache; Additional info: Pupil difference Friday and Friday, followed by severe headache today TECHNIQUE: Imaging protocol: Computed tomographic angiography of the head without and with contrast. Exam focused on the arteries. 3D rendering (Not supervised by radiologist): MIP and/or 3D reconstructed images were created by the technologist. Contrast material: 350; Contrast volume: 70 ml; Contrast route: INTRAVENOUS (IV); COMPARISON: CR XR TMJ LT 05/06/2019 12:30 PM FINDINGS: ANTERIOR CIRCULATION: Right internal carotid artery: Intracranial segment is patent with no significant stenosis or occlusion. No aneurysm. Right middle cerebral artery: No occlusion or significant stenosis. No aneurysm. Right anterior cerebral artery: No occlusion or significant stenosis. No aneurysm. Left internal carotid artery: Intracranial segment is patent with no significant stenosis. No aneurysm. Left middle cerebral artery: No occlusion or significant stenosis. No aneurysm. Left anterior cerebral artery: No occlusion or significant stenosis. No aneurysm. POSTERIOR CIRCULATION: Right vertebral artery: No occlusion or significant stenosis. No aneurysm. Left vertebral artery: No occlusion or significant stenosis. No aneurysm. Basilar artery: No occlusion or significant stenosis. No aneurysm. Right posterior cerebral artery: No occlusion or significant stenosis. No aneurysm. Left posterior cerebral artery: No occlusion or significant stenosis. No aneurysm. HEAD: Brain: Normal. No hemorrhage. Unremarkable white matter. No mass effect. Cerebral ventricles: Normal. No ventriculomegaly. Bones: Unremarkable. No acute fracture. Paranasal sinuses: Mucous retention cyst/polyp identified within the right maxillary sinus which measures 3.7 cm x 2.4 cm in greatest dimension. Mastoid air cells: Visualized mastoids are normal. No mastoid effusion. Soft tissues: Unremarkable. IMPRESSION: Normal CTA examination of the brain. PROCEDURE INFORMATION: Exam: CTA Neck Without And With Contrast Exam date and time: 08/15/2024 7:59 PM Age: 29 years old Clinical indication: Other: Headache; Additional info: Pupil difference Friday and Friday, followed by severe headache today TECHNIQUE: Imaging protocol: Computed tomographic angiography of the neck without and with contrast. Exam focused on the cervical segments of the vasculature. 3D rendering (Not supervised by radiologist): MIP and/or 3D reconstructed images were created by the technologist. Contrast material: 350; Contrast volume: 70 ml; Contrast route: INTRAVENOUS (IV); COMPARISON: CR XR CERVICAL SP LARKIN TRAUMA 2-3V 09/04/2020 7:13 PM FINDINGS: Right common carotid artery: No stenosis. No dissection or occlusion. Right internal carotid artery: No stenosis of the extracranial segment. No dissection or occlusion. Right external carotid artery: No occlusion or stenosis of the origin. Left common carotid artery: No stenosis. No dissection or occlusion. Left internal carotid artery: No stenosis of the extracranial segment. No dissection or occlusion. Left external carotid artery: No occlusion or stenosis of the origin. Right vertebral artery: No stenosis. No dissection or occlusion. Left vertebral artery: No stenosis. No dissection or occlusion. Soft tissues: Normal. No significant soft tissue swelling. Bones/joints: No acute fracture. IMPRESSION: Normal CTA examination of the neck. REFERENCES: NASCET CRITERIA. The degree of stenosis in the cervical segment of the internal carotid artery is based on NASCET criteria. Normal is no stenosis. Mild is less than 50% stenosis. Moderate is 50-69% stenosis. Severe is 70% to 99% stenosis. Total occlusion is no detectable patent lumen. Dictated and Authenticated by: Roni Brown MD. Orderin Mayte Jerez MD
[2024-08-15] MEDS: Prochlorperazine 10 MG/2 ML VIAL 5 MG IVP (21:23)
[2024-08-15] MEDS: MAGNESIUM SULFATE 2 GM/50 ML BAG IVINF (21:23)
[2024-08-15 22:40] VITALS: BP 123/72; PULSE 72; RESP 16; TEMP 36.8; O2SAT 98
== END 2024-08-15 23:44 | disposition home or self-care (01) ==
PROVIDERS: Emergency Provider Emergency Medicine; PCP Emergency Medicine Undersea and Hyperbaric Medicine
DX: R51.9 Headache, unspecified (principal); H57.02 Anisocoria; Z98.1 Arthrodesis status; R11.2 Nausea with vomiting, unspecified
CPT/HCPCS: 70496; 70498; 80048; 96374; 96375; 99285; 83735; 85025; J0780; J3475; J3490